=== PATIENT | male | born 1960 | race Caucasian/White ===

== ENCOUNTER 2019-12-18 06:29 | Outpatient (CLI) | payer OTHER, SELFPAY ==
--- NOTE | ~2019-12-18 | XR_ITS ---
EXAMINATION: XR shoulder RT min 2V DATE: 12/18/2019 06:54 INDICATION: Right shoulder pain. TECHNIQUE: 4 views of right shoulder were obtained. COMPARISON: None. FINDINGS: Bone alignment is normal. No fracture. There is mild osteoarthritis of glenohumeral joint a nd moderate osteoarthritis of acromioclavicular joint. There are old healed right rib fractures. A ca lcified right lung nodule is consistent with old granulomatous disease. IMPRESSION: 1. Polyarticular osteoarthritis. Reviewed, dictated and finalized at location A. FOLIO DIRECTOR
== END 2019-12-18 06:30 | disposition home or self-care (01) ==
PROVIDERS: PCP Family Medicine; Visit Provider Orthopaedic Surgery
DX: M19.011 Primary osteoarthritis, right shoulder (principal)
CPT/HCPCS: 73030

== ENCOUNTER 2020-01-12 13:39 | Outpatient (RCR) | payer OTHER, SELFPAY ==
--- NOTE | 2020-01-12 15:10 | PTOPEVAL ---
PHYSICAL THERAPY EVALUATION AND PLAN OF CARE Thank you for referring this patient to [facility] [place]. Tre was provided with HEP to address strength and ROM deficits as noted below. He will follow-up in 3 weeks to review HEP and update exercises as needed. Please review, sign, date and return this plan of care ANUPAMA. I agree with and certify that the following plan of care is medically necessary. 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 Staying the same for the most part, but aggravating enough to pursue treatment. Will sometimes take over the counter medication. Self Report Pain Assessment Right Shoulder(s) Reported Pain Level 0 Pain Description Aching Current Pain Intensity 0 Lowest Pain Intensity 0 Greatest Pain Intensity 3 Upper Extremity Range of Motion Scapular/ Shoulder Range of Motion Right Shoulder Medial Rotation - Active lateral to L1 with elbow Query Text:Reach Behind the Back pointing posteriorly Scapular/Shoulder Strength Left Shoulder Flexion Strength 5 Normal Shoulder Abduction Strength 5 Normal Shoulder Medial Rotation Strength 5 Normal Shoulder Lateral Rotation Strength 5 Normal Right Shoulder Elevation - Upper Trapezius 5 Normal Scapular Retraction - Rhomboid 4 Good Scapular Retraction - Middle Trapezius 4 Good Scapular Retraction - Lower Trapezius 4 Good Scapular Protraction - Serratus 4- Good - Shoulder Flexion Strength 5 Normal Shoulder Abduction Strength 4 Good Shoulder Medial Rotation Strength 5 Normal Shoulder Lateral Rotation Strength 4 Good Shoulder Strength Comments describes pain in biceps with MMT; mild scapular tipping during scapular retraction Muscle Length Testing Levaetor Scapulae Muscle Length (R) Mild Tightness Shoulder External Rotators Muscle Length (R) Moderate Tightness Pectoralis Major Muscle Length (R) Moderate Tightness Pectoralis Minor Muscle Length (R) Moderate Tightness Posture Sitting Position Shoulder Posture (R) Forward Scapula Posture (R) Protracted Shoulder Special Tests Empty Can (supraspinatus) Test Negative Right Painful Arc Negative Right Drop Arm Test Negative Right Yergason's Test Negative Right Speed's Test Negative Right H
--- NOTE | 2020-02-02 14:17 | PCPTNOTE ---
Patient called and cancelled his appointment today. He had to go to work. Will call to follow-up with patient regarding future visits or needs.
--- NOTE | 2020-02-15 13:31 | PCPTNOTE ---
PHYSICAL THERAPY DISCHARGE NOTIFICATION Attending Provider: Ori Eduardo MD Patient:Tre Fox Date of :1960 Patient has not returned for any further treatments since 01/12/2020, therefore he will be discharged at this time. Patient?s initial visit was on 01/12/2020. He cancelled his follow-up appointment due to work. He did not reschedule the appointment. The goals have not been assessed. Thank you for referring this patient to [facility]. Please review, sign, date and return this discharge summary ANUPAMA. I have been updated about the patient's current status and I agree with discharge from the above service at this time. Referring Physician Date
== END 2020-02-16 08:34 | disposition home or self-care (01) ==
LOC: ANHPT 13:39
PROVIDERS: PCP Family Medicine; Visit Provider Orthopaedic Surgery
DX: M19.011 Primary osteoarthritis, right shoulder (principal)
CPT/HCPCS: 97110; 97161

== ENCOUNTER 2020-11-01 06:32 | Outpatient (CLI) | payer OTHER, SELFPAY ==
[2020-11-01 07:39] LABS: Basophils Absolute Auto 0.1 K/mm3 (0.0-0.1); Eosinophils Absolute Auto 0.2 K/mm3 (0-0.3); Eosinophils Percent Auto 3.8 % (0-4.4); Hematocrit 42.2 % (42.0-52.0); Hemoglobin 14.1 g/dL (14.0-18.0); Immature Granulocyte Absolute 0.02 K/mm3 (0.00-0.031); Immature Granulocyte Percent A 0.3 % (0-0.5); Lymphocytes Absolute Auto 1.46 K/mm3 (0.9-3.2); Lymphocytes Percent Auto 23.1 % (18.3-44.2); Mean Corpuscular HGB Conc 33.4 g/dl (32-36); Mean Corpuscular Hemoglobin 29.7 pg (26-34); Mean Corpuscular Volume 88.8 fl (80-100); Monocytes Absolute Auto 0.7 K/mm3 (0.1-0.6); Monocytes Percent Auto 10.3 % (2.6-8.5); Neutrophils Absolute Auto 3.9 K/mm3 (1.3-6.7); Neutrophils Percent Auto 61.5 % (45.5-73.1); Platelet Count Result 320 k/mm3 (150-375); Red Blood Count 4.75 M/mm3 (4.6-6.20); Red Cell Distribution Width 13.4 % (11.5-14.5); White Blood Count 6.3 K/mm3 (4.5-10.0)
[2020-11-01 07:53] LABS: Alanine Aminotransferase 36 U/L (4-50); Alkaline Phosphatase 62 U/L (38-126); Anion Gap 2 mmol/L (8-16); Aspartate Amino Transferase 41 U/L (17-59); Bilirubin,Total 0.6 mg/dL (0.2-1.3); Blood Urea Nitrogen 15 mg/dL (9-20); Calcium 9.2 mg/dL (8.4-10.2); Carbon Dioxide 34 mmol/L (22-30); Chloride 100 mmol/L (98-107); Cholesterol 233 mg/dL (0-200); Estimated Glomerular Filt Rate > 60; Glucose 101 mg/dL (75-110); HDL Direct 81 mg/dL; Potassium 4.5 mmol/L (3.4-5.0); Sodium 136 mmol/L (137-145); Triglycerides 82 mg/dL (<150)
[2020-11-01 08:04] LABS: LDL Cholesterol Direct 132 mg/dL
[2020-11-01 08:22] LABS: Prostate Specific Antigen 0.5 ng/mL (< OR = 4.0)
[2020-11-01 08:53] LABS: Hepatitis C Virus Antibody Negative (Negative)
== END 2020-11-01 06:33 | disposition home or self-care (01) ==
PROVIDERS: PCP Family Medicine; Visit Provider Family Medicine
DX: Z13.220 Encounter for screening for lipoid disorders (principal); Z12.5 Encounter for screening for malignant neoplasm of prostate; Z11.59 Encounter for screening for other viral diseases; Z00.00 Encounter for general adult medical examination without abnormal findings
CPT/HCPCS: 36415; 80053; 80061; 84153; 85025; 86803; G0103

== ENCOUNTER 2020-12-07 17:00 | Outpatient (RCR) | payer OTHER, SELFPAY ==
--- NOTE | 2020-11-08 16:10 | PTOPEVAL ---
PHYSICAL THERAPY EVALUATION AND PLAN OF CARE Thank you for referring Tre Fox to [facility].? The patient is scheduled to be seen for therapy? 1x/week for 2-4 weeks. Please review, sign, date and return this plan of care ANUPAMA. I agree with and certify that the following plan of care is medically necessary. Referring Physician Date Attending Provider: Ori Eduardo MD Evaluation Evaluation Information Problem Diagnosis cervical radiculopathy Onset 08/2020 Subjective Information Tre is here today with c/o Query Text:As Reported By Patient/ right shoulder pain and Family scapular pain that is diagnosed as cervical radiculopathy. He received a steroid pack on 10/17/2020 and reports that most symptoms have subsided. At times feels symptoms in biceps. States that prior to steroid pack he was not able to sleep on his sides, but now is able to sleep in whatever position is comfortable. Reports that overall he is now doing very well. Pain Assessment Timing of Pain Assessment Timing of Pain Assessment Assessment Self Report Self Report Pain Level 0 Pain Score Pain Score 0: Self Report Cervical and Lumbar ROM Cervical ROM Reason Not Measured WNL/Left,WNL/Right Upper Extremity Range of Motion General Upper Extremity Range of Motion Gross Upper Extremity Range of Motion left shoulder AROM: WNL Comments right shoulder AROM: limited in shoulder IR behind the back and reaching horizontal adduction when compared to left Upper Extremity Muscle Strength Testing Scapular/Shoulder Left Shoulder Flexion Strength 5 Normal Shoulder Abduction Strength 5 Normal Shoulder Medial Rotation Strength 5 Normal Shoulder Lateral Rotation Strength 5 Normal Right Shoulder Flexion Strength 5 Normal Shoulder Abduction Strength 4- Good - Shoulder Medial Rotation Strength 5 Normal Shoulder Lateral Rotation Strength 4- Good - Muscle Length Testing Muscle Length Testing Scalenes Anterior Muscle Length (R) Moderate Tightness,(L) Query Text: Moderate Tightness Pectoralis Major Muscle Length (R) Moderate Tightness,(L) Moderate Tightness Pectoralis Minor Muscle Length (L) Moderate Tightness,(R) Severe Tightness Palpation Assessment Palpation Palpation
--- NOTE | 2020-11-24 17:41 | PTOPEVAL ---
PHYSICAL THERAPY PLAN OF CARE UPDATE Thank you for referring Tre Fox to [facility].? The patient is scheduled to be seen for therapy? 1x/week for 3 weeks. Please review, sign, date and return this plan of care ANUPAMA. I agree with and certify that the following plan of care is medically necessary. Referring Physician Date Attending Provider: Ori Eduardo MD Progress Diagnosis cervical radiculopathy Onset 08/2020 Subjective Information Tre is here today reporting Query Text:As Reported By Patient/ that he is sore, but is doing Family very well overall. Symptoms he is experiencing today are not the same as those that brought him to the doctor initially. Prior to today he was feeling very good. He feels like he is benefiting from learning from PT and is gaining a lot of flexibility Pain Score Pain Score 0: Self Report Cervical and Lumbar ROM Cervical ROM Reason Not Measured WNL/Left,WNL/Right Upper Extremity Range of Motion General Upper Extremity Range of Motion Gross Upper Extremity Range of Motion left shoulder AROM: WNL Comments right shoulder AROM: limited in shoulder IR behind the back when compared to left - reports a pulling in the biceps Upper Extremity Muscle Strength Testing Scapular/Shoulder Left Shoulder Flexion Strength 5 Normal Shoulder Abduction Strength 5 Normal Shoulder Medial Rotation Strength 5 Normal Shoulder Lateral Rotation Strength 5 Normal Right Scapular Retraction - Rhomboid 4- Good - Scapular Retraction - Middle Trapezius 3+ Fair + Scapular Retraction - Lower Trapezius 4- Good - Shoulder Flexion Strength 5 Normal Shoulder Abduction Strength 5 Normal Shoulder Medial Rotation Strength 5 Normal Shoulder Lateral Rotation Strength 5 Normal Shoulder Strength Comments some pulling in biceps with IR MMT and abduction Muscle Length Testing Muscle Length Testing Scalenes Anterior Muscle Length (R) Mild Tightness,(L) Mild Query Text: Tightness Pectoralis Major Muscle Length (R) Mild Tightness,(L) Mild Tightness Pectoralis Minor Muscle Length (R) Moderate Tightness,(L) Moderate Tightness Palpation all trigger points improving; thoracic mobility improving PT Clinical Summary Tre is a 60 yo male presenting to outpatient
--- NOTE | 2020-12-12 13:52 | PCPTNOTE ---
Patient called & cancelled scheduled appointment this date. Rescheduled for 12/14.
--- NOTE | 2020-12-14 11:56 | PCPTNOTE ---
Patient called & cancelled scheduled appointment this date due to work.
--- NOTE | 2020-12-28 08:59 | PCPTNOTE ---
Patient called & cancelled scheduled appointment this date due to does not feel he needs additional therapy.
--- NOTE | 2020-12-28 09:27 | PCPTNOTE ---
Admitting Provider: Attending Provider: Ori Eduardo MD Patient:Tre Fox Date of :1960 Discharge Note Patient has not returned for any further treatments since 12/07/2020, therefore he will be discharged at this time. He has attended 5 therapy visits since 11/08/20 with multiple cancelled visits. He has been instructed with a HEP and demonstrates independence with performance. He demonstrates improved strength, pain and arm function. The goals have been partially met at this time. Thank you for referring this patient to [facility]. Please review, sign, date and return this discharge summary ANUPAMA. I have been updated about the patient's current status and I agree with discharge from the above service at this time. Referring Physician Date
== END 2020-12-28 12:40 | disposition home or self-care (01) ==
LOC: ANHPT 17:00
PROVIDERS: PCP Family Medicine; Referring Provider Orthopaedic Surgery; Visit Provider Orthopaedic Surgery
DX: M19.011 Primary osteoarthritis, right shoulder (principal); M54.12 Radiculopathy, cervical region
CPT/HCPCS: 97110; 97140; 97161

== ENCOUNTER 2021-02-23 16:28 | Outpatient (CLI) | payer OTHER, SELFPAY ==
--- NOTE | ~2021-02-23 | MR_ITS ---
EXAMINATION: MR cervical spine wo con DATE: 02/23/2021 17:13 INDICATION: Cervical radiculopathy TECHNIQUE: Magnetic resonance imaging (MRI) of the cervical spine was performed without intravenous c ontrast. Sequences included sagittal T2-weighted FSE, sagittal T2-weighted FS FSE, sagittal T1-weight ed FSE, axial MERGE and axial T2-weighted FSE. COMPARISON: Cervical spine radiographs dated 12/26/2020 FINDINGS: Bone alignment is normal. Vertebral body heights are normal. Bone marrow signal intensity is normal . Mild to moderate disc height loss at C6-C7. Annular fissures with disc extrusions at C3-C4, C5-C6 a nd C6-C7 with be further detailed below. Mild disc height loss at T2-T3 and T3-T4 with mild disc bulg e at the former. Cord signal intensity is normal. Cervical soft tissues are unremarkable. The followi ng disc levels are specifically discussed: C2-C3: The disc does not extend beyond the endplate margin. There is no uncovertebral joint osteoarth ritis. There is mild left and minimal right facet joint osteoarthritis. There is no neural foraminal stenosis. There is no central canal stenosis. C3-C4: Annular fissure with small central disc extrusion with disc material extending up to 3 mm ceph alad to the level of the inferior endplate of C3 and a couple millimeter caudal to the level of the s uperior endplate of C4. There is mild right uncovertebral joint osteoarthritis. There is mild right a nd mild to moderate left facet joint osteoarthritis. There is mild right neural foraminal stenosis. T here is minimal central canal stenosis. C4-C5: The disc does not extend beyond the endplate margin. There is minimal right uncovertebral join t osteoarthritis. There is mild bilateral facet joint osteoarthritis. There is mild bilateral neural foraminal stenosis. There is no central canal stenosis. C5-C6: Disc is bulging with superimposed annular fissure and left paracentral disc extrusion with dis c material extending a few millimeters cephalad and caudal to the level of the endplates. There is mi ld bilateral uncovertebral joint osteoarthritis. There is minimal bilateral facet joint osteoarthriti s. There is mild right and minimal left neural foraminal stenosis. There is mild central canal stenos is at the left paracentral disc extrusion indenting the left ventral surface of the cord and also agueda rowing the left lateral recess. C6-C7: Disc is bulging with superimposed annular fissure and right foraminal zone disc extrusion with disc material extending couple millimeter cephalad and caudal to the level of the endplates. There i s mild left and moderate right uncovertebral joint osteoarthritis. There is mild bilateral facet join t osteoarthritis. There is mild left and moderate right neural foraminal stenosis. There is mild cent ral canal stenosis with the right foraminal zone disc extrusion mildly indenting the right ventral leo rface of the cord and narrowing the right lateral recess. C7-T1: Disc is minimally bulging. There is minimal bilateral uncovertebral joint osteoarthritis. Ther e is mild right and minimal left facet joint osteoarthritis. There is no neural foraminal stenosis. T here is no central canal stenosis. IMPRESSION: 1. Mild to moderate cervical spondylosis most notable for disc extrusions indenting the ventral surfa ce of the cord at C5-C6 and C6-C7 and to lesser degree at C3-C4. Reviewed, dictated and finalized at location A. IMPRESSION: 1. Mild to moderate cervical spondylosis most notable for disc extrusions inden ting the ventral surface of the cord at C5-C6 and C6-C7 and to lesser degree at C3-C4.
== END 2021-02-23 16:29 | disposition home or self-care (01) ==
PROVIDERS: PCP Family Medicine; Visit Provider Orthopaedic Surgery
DX: M47.22 Other spondylosis with radiculopathy, cervical region (principal); M50.223 Other cervical disc displacement at C6-C7 level; M50.222 Other cervical disc displacement at C5-C6 level; M50.221 Other cervical disc displacement at C4-C5 level
CPT/HCPCS: 72141

== ENCOUNTER 2021-04-25 15:30 | Outpatient (RCR) | payer OTHER, SELFPAY ==
--- NOTE | 2021-03-27 16:44 | PTOPEVAL ---
PHYSICAL THERAPY EVALUATION AND PLAN OF CARE Thank you for referring Tre Fox to [facility].? The patient is scheduled to be seen for therapy? 1x/week for 4-6 weeks. Please review, sign, date and return this plan of care ANUPAMA. I agree with and certify that the following plan of care is medically necessary. Referring Physician Date Attending Provider: Ori Eduardo MD Evaluation Diagnosis cervical pain with right radiculopathy Onset 6months Subjective Information Tre is here today with c/o Query Text:As Reported By Patient/ severe cervical pain with Family right shoulder radiculopathy that was particularly limiting sleep. he noticed that since he stopped doing push ups, he is able sleep musch more comfortably. He puts a neck support around his neck at night and he finds this gives him good sleep. Also notes that arms overhead gives him relief of the pain. Self Report Pain Assessment Right Spine, Cervical Reported Pain Level 1 Pain Description Radiating Interventions Used Interventions Used By Clinicians Exercise Cervical and Lumbar ROM Cervical ROM Cervical Flexion (0-60) 45 Query Text:Active in Degrees Cervical Extension (0-70) 45 Query Text:Active in Degrees Cervical Rotation Right (0-90) 75 Query Text:Active in Degrees Cervical Rotation Left (0-90) 75 Query Text:Active in Degrees Upper Extremity Range of Motion General Upper Extremity Range of Motion Reason Not Measured WFL/Left,WFL/Right Gross Upper Extremity Range of Motion left shoulder mildly stiff to Comments elevation; right shoulder IR behind back very limited reaching only to right hip; left shoulder IR behind back: L3 Upper Extremity Muscle Strength Testing Scapular/Shoulder Bilateral Scapular Retraction - Middle Trapezius 3+ Fair + Scapular Retraction - Lower Trapezius 3 Fair Scapular Protraction - Serratus 3+ Fair + Shoulder Flexion Strength 5 Normal Shoulder Extension Strength 5 Normal Shoulder Medial Rotation Strength 5 Normal Shoulder Lateral Rotation Strength 5 Normal Muscle Length Testing Muscle Length Testing Latissmus Dorsi Muscle Length (L) Moderate Tightness,(R) Severe Tightness Shoulder External Rotators Muscle Length (L) Moderate Tightness,(R) Severe Tightness Pectoralis Major Muscle Length
--- NOTE | 2021-04-18 10:10 | PCPTNOTE ---
Patient called & cancelled scheduled appointment this date due to having to work.
--- NOTE | 2021-04-25 16:01 | PTOPEVAL ---
PHYSICAL THERAPY DISCHARGE NOTE Thank you for referring Tre Fox to [facility].? Please review, sign, date and return this plan of care ANUPAMA. I agree with and certify that the following plan of care is medically necessary. Referring Physician Date Attending Provider: Ori Eduardo MD Discharge Diagnosis cervical pain with right radiculopathy Onset 6months Subjective Information States that he is feeling Query Text:As Reported By Patient/ really good. Really likes Family doing the nerve glides. He states that he is using his exercises and stretches to help him feel better. Self Report Pain Assessment Right Spine, Cervical Reported Pain Level 0 Pain Description Radiating Pain Score Pain Score 0: Self Report Interventions Used Interventions Used By Clinicians Exercise Cervical and Lumbar ROM Cervical ROM Cervical Flexion (0-60) 55 Query Text:Active in Degrees Cervical Extension (0-70) 60 Query Text:Active in Degrees Cervical Rotation Right (0-90) 75 Query Text:Active in Degrees Cervical Rotation Left (0-90) 75 Query Text:Active in Degrees Upper Extremity Range of Motion General Upper Extremity Range of Motion Reason Not Measured WFL/Left,WFL/Right Gross Upper Extremity Range of Motion left shoulder mildly stiff to Comments elevation; right shoulder IR behind back very limited reaching L5; left shoulder IR behind back: T12 Upper Extremity Muscle Strength Testing Scapular/Shoulder Bilateral Scapular Retraction - Middle Trapezius 4 Good Scapular Retraction - Lower Trapezius 4- Good - Scapular Protraction - Serratus 4- Good - Shoulder Flexion Strength 5 Normal Shoulder Extension Strength 5 Normal Shoulder Medial Rotation Strength 5 Normal Shoulder Lateral Rotation Strength 5 Normal Muscle Length Testing Muscle Length Testing Latissmus Dorsi Muscle Length (R) Moderate Tightness,(L) Moderate Tightness Shoulder External Rotators Muscle Length (R) Moderate Tightness,(L) Moderate Tightness Pectoralis Major Muscle Length (R) Mild Tightness,(L) Mild Tightness Posture Posture Standing Position Posture Evaluation View Lateral Head/C-Spine Posture Flexed,Forward Head Thoracic Spine Posture Increased Kyphosis Shoulder Posture (L) Rounded,(R) Rounded,(L) Forward,(R) Forward Scapula Posture (R) Protracted Palpation Assessment Palpation Palpation
== END 2021-04-26 11:13 | disposition home or self-care (01) ==
LOC: ANHPT 15:30
PROVIDERS: PCP Family Medicine; Visit Provider Orthopaedic Surgery
DX: M54.12 Radiculopathy, cervical region (principal); M19.011 Primary osteoarthritis, right shoulder
CPT/HCPCS: 97110; 97140; 97161

== ENCOUNTER 2021-09-30 06:56 | Outpatient (CLI) | payer OTHER, SELFPAY ==
[2021-09-30 07:49] LABS: Alanine Aminotransferase 22 U/L (4-50); Albumin Level 4.5 g/dL (3.5-5.1); Alkaline Phosphatase 65 U/L (38-126); Anion Gap 4 mmol/L (8-16); Aspartate Amino Transferase 30 U/L (17-59); Bilirubin,Total 0.5 mg/dL (0.2-1.3); Blood Urea Nitrogen 12 mg/dL (9-20); Calcium 9.4 mg/dL (8.4-10.2); Carbon Dioxide 31 mmol/L (22-30); Chloride 99 mmol/L (98-107); Cholesterol 218 mg/dL (0-200); Estimated Glomerular Filt Rate > 60; Glucose 104 mg/dL (65-110); HDL Direct 77 mg/dL; Potassium 4.4 mmol/L (3.4-5.0); Sodium 134 mmol/L (137-145); Triglycerides 72 mg/dL (<150)
[2021-09-30 08:00] LABS: LDL Cholesterol Direct 108 mg/dL
[2021-09-30 08:03] LABS: Basophils Absolute Auto 0.1 K/mm3 (0.0-0.1); Basophils Percent Auto 1.4 % (0.2-1.2); Eosinophils Absolute Auto 0.2 K/mm3 (0-0.3); Eosinophils Percent Auto 3.6 % (0-4.4); Hematocrit 43.1 % (42.0-52.0); Hemoglobin 14.5 g/dL (14.0-18.0); Immature Granulocyte Absolute 0.01 K/mm3 (0.00-0.031); Immature Granulocyte Percent A 0.2 % (0-0.5); Lymphocytes Absolute Auto 1.57 K/mm3 (0.9-3.2); Lymphocytes Percent Auto 31.7 % (18.3-44.2); Mean Corpuscular HGB Conc 33.6 g/dl (32-36); Mean Corpuscular Hemoglobin 29.3 pg (26-34); Mean Corpuscular Volume 87.1 fl (80-100); Mean Platelet Volume 10.1 fl (7.4-10.4); Monocytes Absolute Auto 0.5 K/mm3 (0.1-0.6); Monocytes Percent Auto 9.3 % (2.6-8.5); Neutrophils Absolute Auto 2.7 K/mm3 (1.3-6.7); Neutrophils Percent Auto 53.8 % (45.5-73.1); Platelet Count Result 349 k/mm3 (150-375); Red Blood Count 4.95 M/mm3 (4.6-6.20); Red Cell Distribution Width 13.1 % (11.5-14.5)
[2021-09-30 08:19] LABS: Prostate Specific Antigen 0.6 ng/mL (< OR = 4.0)
[2021-09-30 09:11] LABS: Hepatitis C Virus Antibody Negative (Negative)
== END 2021-09-30 06:57 | disposition home or self-care (01) ==
LOC: ANHLAB 06:59
PROVIDERS: PCP Family Medicine; Visit Provider Family Medicine
DX: Z13.220 Encounter for screening for lipoid disorders (principal); Z12.5 Encounter for screening for malignant neoplasm of prostate; Z11.59 Encounter for screening for other viral diseases; Z00.00 Encounter for general adult medical examination without abnormal findings
CPT/HCPCS: 36415; 80053; 80061; 84153; 85025; 86803; G0103

== ENCOUNTER 2022-10-11 04:24 | Emergency (ER) | payer OTHER, SELFPAY ==
[2022-10-11 04:30] VITALS: BP 146/78; PULSE 63; RESP 18; TEMP 36.6; O2SAT 100
[2022-10-11 04:39] VITALS: BP 143/87; PULSE 52; RESP 14; O2SAT 98
[2022-10-11 04:40] VITALS: RESP 18; O2SAT 100
--- NOTE | 2022-10-11 05:12 | ED.GENADULT ---
HPI - General Adult General Chief complaint: Unspecified Stated complaint: FLU SYMPTOMS Time Seen by Provider: 10/11/22 04:55 History of Present Illness HPI narrative: this is a 62-year-old male presenting ED with chief complaint of flu-like symptoms. Patient says that his symptoms started on Saturday. He describes body aches, fever, chills, fatigue decreased oral intake. He denies chest pain, shortness of breath, nausea/vomiting / diarrhea. Patient has been improving since then. Yesterday he was able to go about his job without difficulty and has a normal appetite. However tonight when he went to sleep the patient was having feelings of feet severe anxiety when he went to bed. It is not associated with any physical symptoms. He has never experienced anxiety before. Related Data Allergies Allergy/AdvReac Type Severity Reaction Status Date / Time No Known Allergies Allergy Unverified 12/17/18 05:51 Review of Systems Review of Systems: CONSTITUTIONAL: Denies night sweats. EYES: No eye pain ENT: Denies rhinorrhea CARDIOVASCULAR: Denies palpitations RESPIRATORY: Denies hemoptysis GASTROINTESTINAL: Denies hematemesis GENITOURINARY: Denies hematuria. SKIN: Denies rash MUSCULOSKELETAL: Denies myalgia. NEUROLOGIC: Denies weakness. PSYCHIATRIC: Denies delusions PMFSH Past Medical History Medical History Osteoarthritis of right shoulder Surgical History Surgical History History of appendectomy History of arthroscopy of both knees History of left inguinal hernia repair Family History Family History Father Malignant neoplasm of prostate Other Cerebrovascular accident Family history of allergic disorder Family history of malignant neoplasm Hypertension Social History Social History Smoking status: Former smoker Smoking end date: 11/04/92 Alcohol intake: never Exam Narrative: APPEARANCE: No apparent distress. Patient is polite and pleasant during the interview and is accompanied by his . Head: atraumatic. EYES: EOMI, NOSE: Atraumatic NECK: Trachea midline RESPIRATORY: No increased rate of breathing , clear to auscultation bilaterally CARDIOVASCULAR: bradycardic and regular, no peripheral edema ABDOMINAL: Non-distended, nontender no guarding or rebound MUSCULOSKELETAl: No obvious deformities NEURO: Alert. Moving 4/4 extremities SKIN:: Warm, dry. Normal color PSYCHIATRIC: Normal affect Course Vital Signs Vital signs: Vital Signs Temperature 97.9 F 10/11/22 04:30 Pulse Rate 63 10/11/22 04:30 Respiratory Rate 18 10/11/22 04:30 Blood Pressure 146/78 H 10/11/22 04:30 Pulse Oximetry 100 10/11/22 04:30 Oxygen Delivery Room Air 10/11/22 04:30 Temperature 97.9 F 10/11/22 04:30 Pulse Rate 52 L 10/11/22 04:39 Respiratory Rate 18 10/11/22 04:40 Blood Pressure 143/87 H 10/11/22 04:39 Pulse Oximetry 100 10/11/22 04:40 Oxygen Delivery Room Air 10/11/22 04:30 Medical Decision Making MDM Narrative Medical decision making narrative: this is a 62-year-old male presenting with flu-like symptoms. His symptoms appear to be on the upswing and he is doing much better. Viral swabs have been ordered use positive for COVID. EKG was obtained. Patient was given 1 mg of p.o. Ativan. EKG interpretation: Rhythm [sinus], Rate 47, [place] -[normal], [place] -[normal], QRS [narrow], QTC [normal], T waves -[negative for concerning inversions], ST Segments - [Negative for concerning elevations] Final interpretations: Sinus bradycardia Patient has asymptomatic bradycardia. this time patient has a normal exam has stable vital signs and is well appearing overall. He will be discharged home. He has been instructed to follow up his primary care physic
[2022-10-11 06:07] LABS: Influenza A QL RT-PCR Negative (Negative); Influenza B QL RT-PCR Negative (Negative); SARS-CoV-2 RNA PCR Positive
--- NOTE | 2022-10-11 06:23 | ECG_ITS ---
Measurements Intervals [place] Rate: 47 P: 65 MO: 160 QRS: 4 QRSD: 102 T: 49 QT: 466 QTc: 415 Interpretive Statements SINUS BRADYCARDIA OTHERWISE NORMAL ECG NO PREVIOUS ECG AVAILABLE FOR COMPARISON Electronically Signed On 10-12-2022 7:22:41 COMMUNITY MUSIC THERAPIST by Jose De Jesus Shirley M.D.
[2022-10-11] MEDS: LORazepam (*CRX) 1 MG TABLET PO (06:32)
[2022-10-11 06:56] VITALS: BP 115/69; PULSE 47; RESP 16; O2SAT 99
== END 2022-10-11 06:57 | disposition home or self-care (01) ==
PROVIDERS: Emergency Provider Emergency Medicine; PCP Family Medicine
DX: U07.1 COVID-19 (principal); F41.9 Anxiety disorder, unspecified; M19.011 Primary osteoarthritis, right shoulder; Z87.891 Personal history of nicotine dependence
CPT/HCPCS: 87636; 93005; 99283; A9270

== ENCOUNTER 2022-10-31 06:54 | Outpatient (CLI) | payer OTHER, SELFPAY ==
[2022-10-31 07:32] LABS: Basophils Percent Auto 0.7 % (0.2-1.2); Eosinophils Absolute Auto 0.1 K/mm3 (0-0.3); Eosinophils Percent Auto 1.4 % (0-4.4); Hematocrit 42.8 % (42.0-52.0); Hemoglobin 14.1 g/dL (14.0-18.0); Immature Granulocyte Absolute 0.01 K/mm3 (0.00-0.031); Immature Granulocyte Percent A 0.2 % (0-0.5); Lymphocytes Absolute Auto 1.44 K/mm3 (0.9-3.2); Lymphocytes Percent Auto 25.3 % (18.3-44.2); Mean Corpuscular HGB Conc 32.9 g/dl (32-36); Mean Corpuscular Hemoglobin 28.5 pg (26-34); Mean Corpuscular Volume 86.5 fl (80-100); Mean Platelet Volume 10.2 fl (7.4-10.4); Monocytes Absolute Auto 0.6 K/mm3 (0.1-0.6); Neutrophils Absolute Auto 3.6 K/mm3 (1.3-6.7); Neutrophils Percent Auto 62.4 % (45.5-73.1); Platelet Count Result 328 k/mm3 (150-375); Red Blood Count 4.95 M/mm3 (4.6-6.20); Red Cell Distribution Width 13.6 % (11.5-14.5); White Blood Count 5.7 K/mm3 (4.5-10.0)
[2022-10-31 07:33] LABS: Alanine Aminotransferase 35 U/L (6-50); Albumin Level 4.4 g/dL (3.5-5.1); Alkaline Phosphatase 80 U/L (38-126); Anion Gap 5 mmol/L (8-16); Aspartate Amino Transferase 32 U/L (17-59); Bilirubin,Total 0.7 mg/dL (0.2-1.3); Blood Urea Nitrogen 11 mg/dL (9-20); Calcium 8.9 mg/dL (8.4-10.2); Carbon Dioxide 29 mmol/L (22-30); Chloride 105 mmol/L (98-107); Cholesterol 265 mg/dL (0-200); Estimated Glomerular Filt Rate > 60; Glucose 107 mg/dL (65-110); HDL Direct 70 mg/dL; Potassium 4.5 mmol/L (3.4-5.0); Sodium 139 mmol/L (137-145); Triglycerides 108 mg/dL (<150)
[2022-10-31 07:44] LABS: LDL Cholesterol Direct 119 mg/dL
[2022-10-31 08:02] LABS: Prostate Specific Antigen 0.5 ng/mL (< OR = 4.0)
== END 2022-10-31 06:55 | disposition home or self-care (01) ==
LOC: ANHLAB 06:56
PROVIDERS: PCP Family Medicine; Visit Provider Family Medicine
DX: Z00.00 Encounter for general adult medical examination without abnormal findings (principal); E78.00 Pure hypercholesterolemia, unspecified; Z12.5 Encounter for screening for malignant neoplasm of prostate
CPT/HCPCS: 36415; 80053; 80061; 84153; 85025; G0103

== ENCOUNTER 2023-08-27 06:32 | Outpatient (CLI) | payer OTHER, SELFPAY ==
[2023-08-27 07:45] LABS: Basophils Absolute Auto 0.1 K/mm3 (0.0-0.1); Basophils Percent Auto 1.1 % (0.2-1.2); Eosinophils Absolute Auto 0.1 K/mm3 (0-0.3); Eosinophils Percent Auto 2.8 % (0-4.4); Hematocrit 44.2 % (42.0-52.0); Hemoglobin 14.3 g/dL (14.0-18.0); Lymphocytes Absolute Auto 1.48 K/mm3 (0.9-3.2); Mean Corpuscular HGB Conc 32.4 g/dl (32-36); Mean Corpuscular Hemoglobin 29.1 pg (26-34); Mean Corpuscular Volume 89.8 fl (80-100); Mean Platelet Volume 10.5 fl (7.4-10.4); Monocytes Absolute Auto 0.5 K/mm3 (0.1-0.6); Monocytes Percent Auto 9.9 % (2.6-8.5); Neutrophils Absolute Auto 2.5 K/mm3 (1.3-6.7); Neutrophils Percent Auto 54.2 % (45.5-73.1); Platelet Count Result 322 k/mm3 (150-375); Red Blood Count 4.92 M/mm3 (4.6-6.20); Red Cell Distribution Width 13.1 % (11.5-14.5); White Blood Count 4.6 K/mm3 (4.5-10.0)
[2023-08-27 08:14] LABS: Alanine Aminotransferase 23 U/L (6-50); Albumin Level 4.4 g/dL (3.5-5.1); Alkaline Phosphatase 68 U/L (38-126); Anion Gap 4 mmol/L (8-16); Aspartate Amino Transferase 31 U/L (17-59); Bilirubin,Total 0.8 mg/dL (0.2-1.3); Blood Urea Nitrogen 14 mg/dL (9-20); Calcium 9.4 mg/dL (8.4-10.2); Carbon Dioxide 30 mmol/L (22-30); Chloride 102 mmol/L (98-107); Cholesterol 231 mg/dL (0-200); Estimated Glomerular Filt Rate > 60; Glucose 104 mg/dL (65-110); HDL Direct 71 mg/dL; Potassium 4.4 mmol/L (3.4-5.0); Sodium 136 mmol/L (137-145); Triglycerides 77 mg/dL (<150)
[2023-08-27 08:39] LABS: Prostate Specific Antigen 0.6 ng/mL (< OR = 4.0)
[2023-08-27 09:14] LABS: LDL Cholesterol Direct 126 mg/dL
== END 2023-08-27 06:33 | disposition home or self-care (01) ==
LOC: ANHLAB 06:35
PROVIDERS: PCP Family Medicine; Visit Provider Family Medicine
DX: E78.00 Pure hypercholesterolemia, unspecified (principal); Z00.00 Encounter for general adult medical examination without abnormal findings; Z12.5 Encounter for screening for malignant neoplasm of prostate
CPT/HCPCS: 36415; 80053; 80061; 84153; 85025; G0103

== ENCOUNTER 2025-03-18 02:36 | Day surgery (SDC) | payer OTHER, SELFPAY ==
[2025-03-05 15:46] VITALS: BMI 24.1
--- NOTE | 2025-03-05 15:59 | PC.NURSE ---
Report to the Outpatient Waiting Room, entrance under the green pavilion located off [facility], at time _0830am on date __03/18/25 . Planned Procedure Time: __1030am . Time changes happen often and if your time is changed the preop area will call you the afternoon before. - You and your visitor will be asked to self-screen and do not enter if you have any COVID symptoms. Please call surgeon if you need to reschedule. - A mask is optional within the hospital at this time. Patients may have clear liquids (water, carbonated beverages, clear teas, apple juice) until 3 hours prior to surgery with a maximum of 20 ounces. - No food from midnight until time of surgery and no smoking, or chewing tobacco (or any form of nicotine). No chewing gum, candy or mints.(0730am) Take only the following medications with a SIP of water on the morning of surgery: Tylenol if needed DO NOT STOP ANY OF YOUR OTHER PRESCRIPTION MEDICATIONS PRIOR TO SURGERY EXCEPT THE FOLLOWING Hold all vitamins and supplements for 3 days per anesthesiologist. Date of last dose is 03/14/25 Medications to discontinue per physician __NSAIDS/Aleve or any Aspirin containing products for [address] Eduardo Date to take last dose____03/09/25 Please no make-up, nail lithuanian, hairspray, perfume, deodorant, or body powder the day of surgery. No jewelry (including any body piercings) or valuables the day of surgery, leave them at home. Please take a shower or bath the night before, or the morning of, surgery with an antibacterial soap. Wear comfortable, loose fitting clothing. - Jewelry must be removed prior to entering the operating room. Rings and piercings that are not removed may be cut off. - The hospital will not accept responsibility for valuables. - Please leave all valuables, including medications, at home the day of surgery. If you are going home after surgery, a licensed form setter/driver must drive you home. - NO public transportation without another adult if you receive anesthesia. - We recommend that an adult stay with you for 24 hours following discharge. - We also recommend that you do not drive, make important decision, drink alcoholic beverages, or take any drugs that were not prescribed by your health care provider for at least 24 hours after your discharge time. Follow any additional instructions given to you from your surgeon. Telephone instructions given to _Patient and asked if any additional questions and then verbalized understanding. Patient advised to call surgeon office or pre surgery nurse liaison [phone] if any additional questions.
[2025-03-18] VITALS (8 sets, daily range): BP systolic 129–143; BP diastolic 70–81; PULSE 48–57; RESP 10–21; TEMP 36.3–36.6; O2SAT 98–100
--- OUTSIDE RECORDS SUMMARY | 2025-03-18 02:39 | XMS_ITS | Encounter Summary ---
Author Organization [facility] Healthcare Address [address] [place] [id number] Care Team Providers Care Certified Welder Name Role Phone Rashaad Quinn MD Primary Care Provider [phone] Ori Eduardo MD Unavailable [phone] Encounter Details Date Type Department Care Team (Late st Contact Info) Description 02/15/2025 Results Follow-Up [facility] Medical Group Primary Care at [address] [address] Rashaad Quinn MD [address] [place] [address] [address] [place] [address] Social History Tobacco Use Types Packs/Day Years Used Date Smoking Tobacco: Former Cigarettes 0.5 17 1 982 - 1998 Alcohol Use Standard Drinks/Week Comments No 0 (1 standard drink = 0.6 oz pur e alcohol) Humiliation, Afraid, Rape, and Kick questionnair e Answer Date Recorded Within the last year, have y ou been afraid of your partner or ex-partner? No 08/16/2021 Within the last year, have y ou been humiliated or emotionally abused in other ways by your partner or ex-partner? No Within the last year, have y ou been kicked, hit, slapped, or otherwise physically hurt by your partner or ex-partner? No 08/16/2021 Within the last year, have y ou been raped or forced to have any kind of sexual activity by your partner or ex-partner? No 08/16/2021 Social Connection and Isolation Panel [NHANES] A nswer Date Recorded In a typical week, how many times do you talk on the phone with family, friends, or neighbors? Once a week 08/16/2021 How often do you get together with friends or re latives? Once a week 08/16/2021 How often do you attend faith or hoahaoism serv ices? Never 08/16/2021 Do you belong to any clubs o r organizations such as faith groups, unions, fraternal or athletic groups, or school groups? No 08/16/2021 How often do you attend meet ings of the clubs or organizations you belong to? Never 08/16/2021 Are you , , di vorced, , never , or living with a partner? 08/16/2021 AUDIT-C Answer Date Recorded Q1: How often do you have a drink containing alcohol? Never 11/21/2023 Q2: How many drinks containi ng alcohol do you have on a typical day when you are drinking? Patient does not drink Q3: How often do you have si x or more drinks on one occasion? Never 11/21/2023 Overall Financial Resource Strain (CARDIA) Answe r Date Recorded How hard is it for you to pa y for the very basics like food, housing, medical care, and heating? Not hard at all 08/16/2021 PHQ-2 Answer Date Recorded PHQ-2 Total Score (If total score is 3 or more points, staff should administer the PHQ-9) 0 02/17/2025 [facility] Answer Date Recorded Do you feel stress - tense, restless, nervous, or anxious, or unable to sleep at night because your mind is troubled all the time - these days? Not at all 08/16/2021 Exercise Vital Sign Answer Date Recorde d On average, how many days pe r week do you engage in moderate to strenuous exercise (like a brisk walk)? 4 days 08/16/2021 On average, how many minutes do you engage in exercise at this level? 30 min 08/16/2021 Hunger Vital Sign Answer Date Recorded Within the past 12 months, y ou worried that your food would run out before you got the money to buy more. Never true 08/16/20 21 Within the past 12 months, t he food you bought just didn't last and you didn't have money to get more. Never true 08/16/2021 PRAPARE - Transportation Answer Date Re corded In the past 12 months, has l ack of transportation kept you from medical appointments or from getting medications? No 05/2020 In the past 12 months, has l ack of transportation kept you from meetings, work, or from getting things needed for daily living? No 08/10/2020 Housing Stability Vital Sign Answer Darvin e Recorded In the last 12 months, was t here a time when you were not able to pay the mortgage or rent on time? No 08/16/2021 Number of Places Lived in the Last Year Not on f ile 08/16/2021 In the last 12 months, was t here a time when you did not have a steady place to sleep or slept in a usp (including now)? No 08/16/2021 Education Answer Date Recorded What is the highest level of school you have completed or the highest degree you have received? Associate degree: occupational, technical, or vocational program 08/10/2020 Sex and Gender Information Value Date Recorded Sex Assigned at Not on file Legal Sex Male 10:[address] [employer] Gender Identity Not on file Sexual Orientation Not on file Occupation Industry Job Start Date Job End Date Not on file Not on file Not on file Not on file Not on file Not on file Not on file Not on file documented as of this encounter Plan of Treatment Not on file documented as of this encounter Visit Diagnoses Not on filedocumented in this encounter Care Teams Certified Welder Relationship Specialty Start Date End Date Rashaad Quinn MD PCP - General 02/19/11 Ori Eduardo MD [address] [facility] [address] [place] [address] Consulting Physician Orthopedic Surgery 08/16/21 documented as of this encounter
--- OUTSIDE RECORDS SUMMARY | 2025-03-18 02:39 | XMS_ITS | Referral Summary ---
Author Organization [facility] Medical Office Building B Address [address] [place] [address] Care Team Providers Care Medical Information Officer Name Role Phone Rashaad Quinn MD Primary Care Provider [phone] Ori Eduardo MD Unavailable [phone] Encounters Date Type Department Care Team Description 03/12/2025 8:45 AM CDT Office Visit [facility] at [address] [phone] Osiris Shelley NP Bradycardia (Primary Dx); Hypercholesterolemia 02/17/2025 8:30 AM CDT Office Visit [facility] Primary Care at [address] [phone] Rashaad Quinn MD Hypercholesterolemia (Primary Dx); Benign prostatic hyperplasia with nocturia; Rotator cuff tear arthropathy of left shoulder 02/15/2025 Results Follow-Up [facility] Primary Care at [address] [phone] Rashaad Quinn MD 02/13/2025 7:15 AM CDT Lab [address] [phone] Need for hepatitis B screening test; Benign prostatic hyperplasia with nocturia; Hypercholesterolemia 02/05/2025 Results Follow-Up [facility] Primary Care at [address] [phone] Asia Mcghee NP Tear of left supraspinatus tendon (Primary Dx) 02/03/2025 3:14 PM CDT - 02/03/2025 11:59 PM CDT Hospital Encounter [facility] [address] [place] [address] Acute pain of left shoulder due to trauma; Bony sclerosis Discharge Disposition: Discharge to home or self care 01/26/2025 Orders Only [facility] Primary Care at [address] [phone] Asia Mcghee NP Acute pain of left shoulder due to trauma (Primary Dx); Bony sclerosis 01/26/2025 Results Follow-Up [facility] Primary Care at [address] [phone] Asia Mcghee NP 01/26/2025 9:05 AM CDT Ancillary Procedure [facility] at [address] [phone] Acute pain of left shoulder 01/20/2025 2:30 PM CDT Office Visit [facility] Primary Care at [address] [phone] Asia Mcghee, LOREE Acute pain of left shoulder (Primary Dx) from Last 3 Months Allergies No known active allergies Medications flaxseed oil oil Active cholecalciferol , vitamin D3, (VITAMIN D3 ORAL) Take by mouth Active calcium carbonate (CALCIUM 600 ORAL) Take by mouth Active naproxen (NAPROSYN) 500 mg tabletIndicatio ns:Right ear pain Take 1 tablet (500 mg total) by mouth 2 (two) times a day as needed for pain (pain) 30 tablet 4 02/18/20 25 Discontinued Active Problems Problem Noted Date Diagnosed Date Rotator cuff tear arthropathy of left shoulder 0 02/17/2025 Statin declined 02/17/2025 Administrative encounter 08/19/2024 Assessment & Plan (08/19/2024 2:29 PM CDT): A(n) yearly Medicare Annual Wellness Visit has been performed today. Tre Fox is not up to date on screening tests. He is in need of AAA Screening and hepatitis B screening . He is not up to date on needed preventative vaccinations; He is in need of Influenza and Pneumonia (Prevnar-13 or Pneumovax-23). We discussed healthy lifestyle habits, educational material has been given. Medications reviewed, changes documented as per the medical record and discussed with patient along with risks vs benefits. Specific topics reviewed: drugs, ETOH, and tobacco, importance of regular dental care, importance of regular exercise, importance of varied diet, limit TV, media violence, minimize junk food, and seat belts. Return in 6 months Bradycardia 07/24/2024 Assessment & Plan (07/24/2024 11:12 AM CDT): ECG 12 lead Date/Time: 07/24/2024 11:09 AM Performed by: Stephanie Caputo NP Authorized by: Stephanie Caputo NP Comparison: not compared with previous ECG Previous ECG: no previous ECG available Rhythm: sinus bradycardia Ectopy comments: infrequent PAC Rate: bradycardic QRS axis: normal Conduction: conduction normal ST Segments: ST segments normal T Waves: T waves normal Other: no other findings Clinical impression: normal ECG Hold on right sided neck exercises. Refer to cardiology. Likely vasovagal response, baseline HR is low due to baseline cardiac fitness. Since he's having symptoms, will refer to cardiology for evaluation. Well adult exam 08/19/2023 Assessment & Plan (08/19/2023 1:18 PM CDT): A(n) yearly well adult visit has been performed today. Tre Fox is not up to date on screening tests. He is in need of Prostate screening and Cholesterol screening. He is not up to date on needed preventative vaccinations; He is in need of Zoster. We discussed healthy lifestyle habits, educational material has been given. Medications reviewed, changes documented as per the medical record and discussed with patient along with risks vs benefits. Return in 1 year Seborrheic keratosis, inflamed 08/31/2021 Benign prostatic hyperplasia with nocturia 06/05 Umbilical hernia without obstruction and without gangrene 06/05/2018 Healthcare maintenance 04/29/2017 Assessment & Plan (04/29/2017 3:25 PM CDT): Reviewed screenings. Due for labs. He's had a colonoscopy. Up to date on td. Hypercholesterolemia 03/20/2014 Overview (02/08/2017): Hypercholesterolemia Immunizations Immunization Administration Dates Next Due Influenza, Split 11/04/2017 Influenza, Unspecified 08/19/2024(Deferr ed: Patient Refused),11/21/2023(Deferred: Patient Refused),05/04/2023(Deferred: Patient Refused),11/04/2022(Deferred: Patient Refused),08/16/2022(Deferred: Patient Refused),08/04/2019(Deferred: Patient Refused) Tdap 09/10/2016,02/19/2011 Social History Tobacco Use Types Packs/Day Years Used Date Smoking Tobacco: Former Cigarettes 0.5 17 1 982 - 1998 Tobacco Cessation:Counseling Given: Not Answered Alcohol Use Standard Drinks/Week Comments No 0 [...] week 08/16/2021 How often do you attend shinto or christian serv ices? Never 08/16/2021 Do you belong to any clubs o r organizations such as shinto groups, unions, fraternal or athletic groups, or [...] staff should administer the PHQ-9) 0 02/17/[facility]ational [facility] Questionnaire Answer Date Recorded [...] place to sleep or slept in a alf (including now)? No 08/16/2021 Education Answer Date Recorded What is the highest level of school you have completed or the highest degree you have received? Associate degree: occupational, technical, or vocational program 08/10/2020 Sex and Gender Information Value Date Recorded Sex Assigned at Not on file Legal Sex Male 10:14 AM CLERK RATING Gender Identity Not on file Sexual Orientation Not on file Occupation Industry Job Start Date Job End Date Not on file Not on file Not on file Not on file Not on file Not on file Not on file Not on file Last Filed Vital Signs Vital Sign Reading Time Taken Comments Blood Pressure 142/69 03/12/2025 8:48 AM CDT Lg. Adult Cuff Pulse 53 03/12/2025 8:48 AM CDT Temperature 36.1 C (96.9 F) 02/17/2025 8:23 AM CDT Respiratory Rate 16 03/12/2025 8:48 AM CDT Oxygen Saturation 97% 03/12/2025 8:4 8 AM CDT Inhaled Oxygen Concentration - - Weight 74.4 kg (164 lb) 03/12/2025 8:48 AM CDT Height 175.3 cm (5' 9 ) 03/12/2025 8:48 AM CDT Body Mass Index 24.22 03/12/2025 8:48 AM CDT Plan of Treatment Not on file Procedures Procedure Name Priority Date/Time Associated Diagnosis Comments EGFR Routine 02/13/2025 7:17 AM CDT Hypercholesterolem ia DIFFERENTIAL AUTO Routine 02/13/2025 7:1 7 AM CDT Hypercholesterolem ia CBC WITH AUTO DIFFERENTIAL Routine 02/13/2025 7:17 AM CDT Hypercholesterolem ia COMPREHENSIVE METABOLIC PANEL Routine 02/13/2025 7:17 AM CDT Hypercholesterolem ia LIPID PANEL Routine 02/13/2025 7:17 AM CDT Hypercholesterolem ia PSA DIAGNOSTIC Routine 02/13/2025 7:17 AM CDT Benign prostatic hyperplasia with nocturia HEPATITIS B SURFACE ANTIGEN Routine 02/13/2025 7:17 AM CDT Need for hepatitis B screening test HEPATITIS B CORE ANTIBODY, TOTAL Routine 02/13/2025 7:17 AM CDT Need for hepatitis B screening test HEPATITIS B SURFACE ANTIBODY (IMMUNE STATUS) Routine 02/13/2025 7:17 AM CDT Need for hepatitis B screening test MRI SHOULDER LEFT WO CONTRAST Schedule Routine, Read Routine (OP Routine) 02/03/2025 3:53 PM CDT Acute pain of left shoulder due to trauma Bony sclerosis XR SHOULDER LEFT 2 OR MORE VIEWS Schedule Routine, Read Routine (OP Routine) 01/26/2025 9:11 AM CDT Acute pain of left shoulder US ABDOMINAL AORTIC ANEURYSM SCREENING Schedule Routine, Read Routine (OP Routine) 10/23/2024 3:59 PM CLERK RATING Screening for abdominal aortic aneurysm HEPATITIS C ANTIBODY Routine 11/01/2020 HM COLONOSCOPY Routine 08/14/2018 from Last 3 Months or Most Recently Relevant to Health Maintenance Results * eGFR (02/13/2025 7:17 AM CDT) eGFR >90 >=60 mL/min/1. 73 m2 Comment: Interpretive Data Reference Interval Normal >/= 90 mL/min/1.73m2 Mildly decreased* 60 - 89 mL/min/1.73m2 Mildly to moderately decreased 45 - 59 mL/min/1.73m2 Moderately to severely decreased 30 - 44 mL/min/1.73m2 Severely decreased 15 - 29 mL/min/1.73m2 Kidney Failure < 15 mL/min/1.73m2 *Relative to young adult level Estimated glomerular filtration rate is determined by the 2020 CKD-EPI equation recommended by the National Kidney Foundation (A Unifying Approach to GFR Estimation: Recommendations of the NKF-ASK Task Force on Reassessing the Inclusion of Race in Diagnosing Kidney Disease, JASN 2020). The CKD-EPI equation should not be used for patients with unstable renal function and has not been validated in children and those over 70. Current interpretive data was last reviewed 2021. Blood 02/13/2025 7:17 AM CDT 02/13/2025 7:51 AM CDT us Rashaad Quinn MD LAB BLOOD ORDERABLES Final Result [facility] ([place]) 1 [facility] Department [place] [address] * Differential, auto (02/13/2025 7:17 AM CDT) Neutrophil abs 2.20 1.50 - 6.50 K/cumm Imm gran abs 0.01 0.00 - 0.10 K/cumm [facility] ([place]) Lymphocyte abs 1.45 0.80 - 3.30 K/cumm [facility] ([place]) Monocyte abs 0.47 0.20 - 0.80 K/cumm [facility] ([place]) Eosinophil abs 0.17 0.00 - 0.50 K/cumm [facility] ([place]) Basophil abs 0.03 0.00 - 0.10 K/cumm [facility] ([place]) Neutrophil pct 50.8 % [facility] ([place]) Comment: Interpretive Data Percent cell count reference ranges are not reported, since discordance with absolute values may lead to misinterpretation of CBC data. Current Interpretive Data was last revised on 2018. Imm gran pct 0.2 % [facility] ([place]) Comment: Interpretive Data Percent cell count reference ranges are not reported, since discordance with absolute values may lead to misinterpretation of CBC data. Current Interpretive Data was last revised on 2018. Lymphocyte pct 33.5 % [facility] ([place]) Comment: Interpretive Data Percent cell count reference ranges are not reported, since discordance with absolute values may lead to misinterpretation of CBC data. Current Interpretive Data was last revised on 2018. Monocyte pct 10.9 % [facility] ([place]) Comment: Interpretive Data Percent cell count reference ranges are not reported, since discordance with absolute values may lead to misinterpretation of CBC data. Current Interpretive Data was last revised on 2018. Eosinophil pct 3.9 % [facility] ([place]) Comment: Interpretive Data Percent cell count reference ranges are not reported, since discordance with absolute values may lead to misinterpretation of CBC data. Current Interpretive Data was last revised on 2018. Basophil pct 0.7 % [facility] ([place]) Comment: Interpretive Data Percent cell count reference ranges are not reported, since discordance with absolute values may lead to misinterpretation of CBC data. Current Interpretive Data was last revised on 2018. Blood 02/13/2025 7:17 AM CDT 02/13/2025 7:51 AM CDT us Rashaad Quinn MD LAB BLOOD ORDERABLES Final Result [facility] ([place]) 1 [facility] Department [place] [address] * CBC with auto differential (02/13/2025 7:17 AM CDT) WBC 4.33 3.80 - 9.90 K/cumm Hgb 13.3 13.0 - 17.5 g/dL [facility] ([place]) Hct 40.9 38.9 - 50.3 % [facility] ([place]) Plt 264 150 - 400 K/cumm [facility] ([place]) MPV 10.3 9.1 - 12.3 fL [facility] ([place]) RBC 4.58 4.30 - 5.80 M/cumm [facility] ([place]) MCV 89.3 81.3 - 96.4 fL [facility] ([place]) MCH 29.0 27.1 - 33.3 pg [facility] ([place]) MCHC 32.5 32.3 - 35.7 g/dL [facility] ([place]) RDW CV 13.2 11.1 - 14.9 % [facility] ([place]) RDW SD 43.8 35.7 - 48.1 fL [facility] (RM) NRBC abs 0.00 0.00 - 0.01 K/cumm [facility] ([place]) Blood 02/13/2025 7:17 AM CDT 02/13/2025 7:51 AM CDT Rashaad Quinn MD LAB BLOOD ORDERABLES Final Result Performing Organization Address City/[facility] Co de Phone Number [facility] ([place]) 1 [facility] [place] [address] * Hepatitis B core antibody, total Blood (02/13/2025 7:17 AM CDT) Hep B core IgG/IgM Nonreactive Nonreactive Comment:Testing performed by : [facility], [address] [place] [address], [address] Blood 02/13/2025 7:17 AM CDT 02/13/2025 2:06 PM CDT Rashaad Quinn MD LAB MICROBIOLOGY - GENERAL ORDERABLES Final Result Performing Organization Address City/[facility] Co de Phone Number [facility] ([place]) 1 [facility] [place] [address] * Hepatitis B surface antibody (immune status) Blood (02/13/2025 7:17 AM CDT) HBsAb (immune status) Nonreactive Comment: Interpretive Data Nonreactive: This result is consistent with a lack of immunity to Hepatitis B Virus when used in the setting of routine screening. Equivocal: The immune status of the individual should be further assessed, if appropriate, after consideration of clinical status, risk factors, and additional diagnostic information. Reactive: This result is consistent with immunity to Hepatitis B Virus when used in the setting of routine screening. Current interpretive data was last revised on 20. Testing performed by: [facility], [address] [place] [address], [address] Blood 02/13/2025 7:17 AM CDT 02/13/2025 1:35 PM CDT Result [facility] Rashaad Quinn MD LAB MICROBIOLOGY - GENERAL ORDERABLES Final Result Performing Organization Address [facility] Co de Phone Number [facility] ([place]) 1 [place] [address] * Hepatitis B Surface Antigen Blood (02/13/2025 7:17 AM CDT) HepBsAg Nonreactive Nonreactive Comment:Testing performed by : [address], [address] Blood 02/13/2025 7:17 AM CDT 02/13/2025 1:35 PM CDT Result [facility] Rashaad Quinn MD LAB MICROBIOLOGY - GENERAL ORDERABLES Final Result Performing Organization Address [facility] de Phone Number [facility] ([facility]GG[facility]) 1 [place] [address] * PSA diagnostic (02/13/2025 7:17 AM CDT) PSA-Total 0.51 <=5.40 ng/mL Comment: Interpretive Data AGE SEX REFERENCE INTERVAL 0 minutes-150 years Female None 0 minutes-49 years Male None 50-59 years Male 0-3.90 60-69 years Male 0-5.40 70-79 years Male 0-6.20 80-150 years Male 0-6.20 The Gage PSA Total assay procedure was used. Results from different manufacturers or methods may not be comparable. Serial testing should be performed using the same method. Current interpretive data last revised 22. Blood 02/13/2025 7:17 AM CDT 02/13/2025 7:51 AM CDT Result [facility] Rashaad Quinn MD LAB BLOOD ORDERABLES Final Result [facility] ([place]) 1 [facility] Department [place] [address] * Lipid panel (02/13/2025 7:17 AM CDT) Cholesterol 196 30 - 199 mg/dL Comment: Interpretive Data Ages < or = 19 years Acceptable: <170 mg/dL Borderline high: 170-199 mg/dL High: >or= 200 mg/dL Ages > or = 20 years Desirable: <200 mg/dL Borderline high: 200-239 mg/dL High: >or= 240 mg/dL Literature References: 1. Expert Panel on Integrated Guidelines for Cardiovascular Health and Risk Reduction in Children and Adolescents. Pediatrics 2011;128:S213 2. NCEP Expert Panel. Circulation 2004;110:227 Current Interpretive Data was last revised on 2018. Triglycerides 58 <=149 mg/dL [facility] (RM) Comment: Interpretive Data Ages < or = 9 years Acceptable: <75 mg/dL Borderline high: 75-99 mg/dL High: >or= 100 mg/dL Ages 10 to 20 years Acceptable: <90 mg/dL Borderline high: 90-129 mg/dL High: >or= 130 mg/dL Ages > or = 20 years Desirable: <150 mg/dL Borderline high: 150-199 mg/dL High: 200-499 mg/dL Very high: >or= 499 mg/dL Literature References: 1. Expert Panel on Integrated Guidelines for Cardiovascular Health and Risk Reduction in Children and Adolescents. Pediatrics 2011;128:S213 2. NCEP Expert Panel. Circulation 2004;110:227 Current Interpretive Data was last revised on 2018. HDL 73 >=40 mg/dL [facility] ([place]) Comment: Interpretive Data Ages < or = 19 years Acceptable: >45 mg/dL Borderline low: 40-45 mg/dL Low: <40 mg/dL Ages > or = 20 years Desirable: >or= 60 mg/dL Low: <40 mg/dL Literature References: 1. Expert Panel on Integrated Guidelines for Cardiovascular Health and Risk Reduction in Children and Adolescents. Pediatrics 2011;128:S213 2. NCEP Expert Panel. Circulation 2004;110:227 Current Interpretive Data was last revised on 2018. LDL, calculated 112 <=129 mg/dL [facility] ([place]) Comment: Interpretive Data Ages < or = 19 years Acceptable: <110 mg/dL Borderline high: 110-129 mg/dL High: >or= 130 mg/dL Ages > or = 20 years Optimal: <100 mg/dL Near optimal: 100-129 mg/dL Borderline high: 130-159 mg/dL High: >160 mg/dL Calculated using the Ilir LDL-C estimating equation. This equation was implemented on 2024. Prior to this date LDL-C was estimated using the Friedewald equation. Literature References: 1. Expert Panel on Integrated Guidelines for Cardiovascular Health and Risk Reduction in Children and Adolescents. Pediatrics 2011;128:S213 2. NCEP Expert Panel. Circulation 2004;110:227 3. Ilir Ribeiro et al. [place] Cardiol. 2019March 04;5(5):540-548. doi: 10.1001/jamacardio.2020.0013 Current Interpretive Data was last revised on 2024. Non-HDL Cholesterol 123 mg/dL [facility] ([place]) Comment: Interpretive Data Ages < or = 19 years Acceptable: <120 mg/dL Borderline high: 120-144 mg/dL High: >145 mg/dL Ages > or = 20 years When triglycerides are >200 mg/dL, Non-HDL cholesterol is a secondary target of therapy with treatment goals that are 30 mg/dL greater than the LDL cholesterol target. Literature References: 1. Expert Panel on Integrated Guidelines for Cardiovascular Health and Risk Reduction in Children and Adolescents. Pediatrics 2011;128:S213 2. NCEP Expert Panel. Circulation 2004;110:227 Current Interpretive Data was last revised on 2018. Chol/HDL ratio 3 [facility] ([place]) Blood 02/13/2025 7:17 AM CDT 02/13/2025 7:51 AM CDT us Rashaad Quinn MD LAB BLOOD ORDERABLES Final Result [facility] ([place]) 1 [facility] Department [place] [address] * (ABNORMAL) Comprehensive metabolic panel (02/13/2025 7:17 AM CDT) Sodium 136 135 - 145 mmol/L Potassium, pl 4.6 3.3 - 4.9 mmol/L [facility] ([place]) Chloride 102 97 - 110 mmol/L [facility] ([place]) CO2 26 22 - 32 mmol/L [facility] ([place]) Anion gap 9 2 - 15 mmol/L [facility] ([place]) BUN 14 6 - 25 mg/dL [facility] ([place]) Creatinine 0.70(L) 0.80 - 1.30 mg/dL [facility] ([place]) Glucose 99 70 - 199 mg/dL [facility] ([place]) Comment: Interpretive Data Fasting glucose >/= 126 mg/dl is diagnostic for diabetes. Fasting is defined as no caloric intake for at least 8 hours. Fasting glucose between 100 mg/dl to 125 mg/dl is diagnostic of prediabetes. In a patient with classic symptoms of hyperglycemia or hyperglycemic crisis, a random glucose >/= 200 mg/dl is diagnostic for diabetes. In the absence of unequivocal hyperglycemia, results should be confirmed by repeat testing. The classification and Diagnosis of Diabetes Diabetes Care 2021; 46: S19-S40. Current interpretive data was last revised 2022. Calcium 9.0 8.5 - 10.3 mg/dL [facility] ([place]) Bilirubin, total 0.6 0.1 - 1.2 mg/dL [facility] ([place]) Protein, pl 6.8 6.5 - 8.5 g/dL [facility] ([place]) Albumin 4.4 3.5 - 5.0 g/dL [facility] ([place]) Alk phos 63 40 - 130 Units/L [facility] ([place]) ALT 20 7 - 55 Units/L [facility] ([facility]) AST 23 10 - 50 Units/L [facility] ([place]) Blood 02/13/2025 7:17 AM CDT 02/13/2025 7:51 AM CDT us Rashaad Quinn MD LAB BLOOD ORDERABLES Final Result [facility] ([place]) 1 [facility] Department [place] [address] * MRI Shoulder Left WO Contrast (02/03/2025 3:53 PM CDT) Anatomical Region Laterality Modality Upper Extremities Left Magnetic Reson ance 02/05/2025 10:0 9 AM CDT Narrative 02/05/2025 10:13 AM CDT EXAM DESCRIPTION: MRI SHOULDER LEFT WO CONTRAST REASON FOR STUDY: Shoulder trauma, rotator cuff tear suspected, xray done, humeral head with sclerosis TECHNIQUE: Multiplanar, multisequence MRI of the left shoulder was performed without contrast. COMPARISON: None FINDINGS: Rotator Cuff: There is advanced supraspinatus tendinosis with full thickness essential full width tearing and tendon retraction to mid humeral head. There is moderate infraspinatus tendinosis without discrete tearing. The teres minor is intact. Intra-articular biceps is moderately tendinotic. Subscapularis mild tendinosis without discrete tearing. No muscle atrophy or edema. Biceps Tendon: The long head of the biceps tendon is located within the bicipital groove, without tear. Labrum: No tear is identified. Acromion and AC Joint: The coracoacromial and coracoclavicular ligaments are intact. 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 Type 2 acromion. Glenohumeral Articulation: No subluxation. Mild chondromalacia. Bones: No fracture. Joint and bursae: Small joint effusion and subacromial/subdeltoid bursitis. Several small intra-articular bodies. Soft Tissues: The scapular notch, and quadrilateral space are unremarkable. There is no axillary lymphadenopathy. IMPRESSION: Supraspinatus advanced tendinosis with full thickness essential full width tearing and tendon retraction to the mid humeral head. Infraspinatus moderate tendinosis without discrete tearing. Intra-articular biceps moderate tendinosis. Subscapularis mild tendinosis without discrete tearing. Acromioclavicular articulation moderate osteoarthritis. Glenohumeral articulation mild chondromalacia. Small joint effusion and subacromial/subdeltoid bursitis. Several small intra-articular bodies. THIS IS AN ELECTRONICALLY VERIFIED FINAL REPORT 02/05/2025 10:13 AM - Electronically signed by Roscoe So M.D. JA: ASHISH Report ID: [id number] Reading Location: [id number] Procedure Note Roscoe So MD - 02/05/2025 EXAM DESCRIPTION: MRI SHOULDER LEFT WO CONTRAST REASON FOR STUDY: Shoulder trauma, rotator cuff tear suspected, xray done, humeral head with sclerosis TECHNIQUE: Multiplanar, multisequence MRI of the left shoulder wasperformed without contrast. COMPARISON: None FINDINGS: Rotator Cuff: There is advanced supraspinatus tendinosis with fullthickness essential full width tearing and tendon retraction to mid humeral head.There is moderate infraspinatus tendinosis without discrete tearing. The teres minor is intact. Intra-articular biceps is moderately tendinotic. Subscapularis mild tendinosis without discrete tearing. No muscle atrophyor edema. Biceps Tendon: The long head of the biceps tendon is located within the bicipital groove, without tear. Labrum: No tear is identified. Acromion and AC Joint: The coracoacromial and coracoclavicular ligamentsare intact. 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 Type 2 acromion. Glenohumeral Articulation: No subluxation. Mild chondromalacia. Bones: No fracture. Joint and bursae: Small joint effusion and subacromial/subdeltoidbursitis. Several small intra-articular bodies. Soft Tissues: The scapular notch, and quadrilateral space areunremarkable. There is no axillary lymphadenopathy. IMPRESSION: Supraspinatus advanced tendinosis with full thickness essential fullwidth tearing and tendon retraction to the mid humeral head. Infraspinatus moderate tendinosis witho [id number]|2025-03-18 02:39:00|2025-03-18 02:39:00|XMS_ITS|SHAUN BONNER|External Medical Summaries|[id number]|" Clinical Summary Created on: March 18, 2025 Tre Fox : 1960 Sex: Male Author Organization [facility] Building [address] Address [address] [place] [address] Care Team Providers Care Medical Information Officer Name Role Phone Rashaad Quinn MD Primary Care Provider [phone] Ori Eduardo MD Unavailable [phone] Allergies No known active allergies Medications flaxseed oil oil Active cholecalciferol , vitamin D3, (VITAMIN D3 ORAL) Take by mouth Active calcium carbonate (CALCIUM 600 ORAL) Take by mouth Active naproxen (NAPROSYN) 500 mg tabletIndicatio ns:Right ear pain Take 1 tablet (500 mg total) by mouth 2 (two) times a day as needed for pain (pain) 30 tablet 4 02/18/20 25 Discontinued Active Problems Problem Noted Date Diagnosed Date Rotator cuff tear arthropathy of left shoulder 0 02/17/2025 Statin declined 02/17/2025 Administrative encounter 08/19/2024 Assessment & Plan (08/19/2024 2:29 PM CDT): A(n) yearly Medicare Annual Wellness Visit has been performed today. Tre Fox is not up to date on screening tests. He is in need of AAA Screening and hepatitis B screening . He is not up to date on needed preventative vaccinations; He is in need of Influenza and Pneumonia (Prevnar-13 or Pneumovax-23). We discussed healthy lifestyle habits, educational material has been given. Medications reviewed, changes documented as per the medical record and discussed with patient along with risks vs benefits. Specific topics reviewed: drugs, ETOH, and tobacco, importance of regular dental care, importance of regular exercise, importance of varied diet, limit TV, media violence, minimize junk food, and seat belts. Return in 6 months Bradycardia 07/24/2024 Assessment & Plan (07/24/2024 11:12 AM CDT): ECG 12 lead Date/Time: 07/24/2024 11:09 AM Performed by: Stephanie Caputo NP Authorized by: Stephanie Caputo NP Comparison: not compared with previous ECG Previous ECG: no previous ECG available Rhythm: sinus bradycardia Ectopy comments: infrequent PAC Rate: bradycardic QRS axis: normal Conduction: conduction normal ST Segments: ST segments normal T Waves: T waves normal Other: no other findings Clinical impression: normal ECG Hold on right sided neck exercises. Refer to cardiology. Likely vasovagal response, baseline HR is low due to baseline cardiac fitness. Since he's having symptoms, will refer to cardiology for evaluation. Well adult exam 08/19/2023 Assessment & Plan (08/19/2023 1:18 PM CDT): A(n) yearly well adult visit has been performed today. Tre Fox is not up to date on screening tests. He is in need of Prostate screening and Cholesterol screening. He is not up to date on needed preventative vaccinations; He is in need of Zoster. We discussed healthy lifestyle habits, educational material has been given. Medications reviewed, changes documented as per the medical record and discussed with patient along with risks vs benefits. Return in 1 year Seborrheic keratosis, inflamed 08/31/2021 Benign prostatic hyperplasia with nocturia 06/05 Umbilical hernia without obstruction and without gangrene 06/05/2018 Healthcare maintenance 04/29/2017 Assessment & Plan (04/29/2017 3:25 PM CDT): Reviewed screenings. Due for labs. He's had a colonoscopy. Up to date on td. Hypercholesterolemia 03/20/2014 Overview (02/08/2017): Hypercholesterolemia Encounters Date Type Department Care Team Description 03/12/2025 8:45 AM CDT Office Visit [facility] at [address] [phone] Datillo, Osiris Khushbu, ADJUNCT WRITING INSTRUCTOR Bradycardia (Primary Dx); Hypercholesterolemia 02/17/2025 8:30 AM CDT Office Visit [facility] Care at [address] [phone] Rashaad Quinn MD Hypercholesterolemia (Primary Dx); Benign prostatic hyperplasia with nocturia; Rotator cuff tear arthropathy of left shoulder 02/15/2025 Results Follow-Up [facility] Primary Care at [address] [phone] Rashaad Quinn MD 02/13/2025 7:15 AM CDT Lab [address] [phone] Need for hepatitis B screening test; Benign prostatic hyperplasia with nocturia; Hypercholesterolemia 02/05/2025 Results Follow-Up [facility] at [address] [phone] Mchgee, Asia, ADJUNCT WRITING INSTRUCTOR Tear of left supraspinatus tendon (Primary Dx) 02/03/2025 3:14 PM CDT - 02/03/2025 11:59 PM CDT Hospital Encounter [facility] [address] [place] [address] Acute pain of left shoulder due to trauma; Bony sclerosis Discharge Disposition: Discharge to home or self care 01/26/2025 9:05 AM CDT Ancillary Procedure [facility] at [address] [phone] Acute pain of left shoulder 01/26/2025 Orders Only [facility] Primary Care at [address] [phone] Mcghee, Asia, ADJUNCT WRITING INSTRUCTOR Acute pain of left shoulder due to trauma (Primary Dx); Bony sclerosis 01/26/2025 Results Follow-Up [facility] at [address] [phone] Mcghee, Asia, ADJUNCT WRITING INSTRUCTOR 01/20/2025 2:30 PM CDT Office Visit [facility] Primary Care at [address] [phone] Mcghee, Asia, ADJUNCT WRITING INSTRUCTOR Acute pain of left shoulder (Primary Dx) from Last 3 Months Immunizations Immunization Administration Dates Next Due Influenza, Split 11/04/2017 Influenza, Unspecified 08/19/2024(Deferr ed: Patient Refused),11/21/2023(Deferred: Patient Refused),05/04/2023(Deferred: Patient Refused),11/04/2022(Deferred: Patient Refused),08/16/2022(Deferred: Patient Refused),08/04/2019(Deferred: Patient Refused) Tdap 09/10/2016,02/19/2011 Surgical History Surgery Date Site/Laterality Comments OTHER SURGICAL HISTORY 11/04/2018 - 11/03/2019 INGUINAL HERNIA: herniorraphy OTHER SURGICAL HISTORY 11/04/1963 - 11/03/1964 appendicits: Appendectomy OTHER SURGICAL HISTORY 11/04/1989 - 11/03/1990 Right knee pain: bilateral arthroscopy KNEE ARTHROSCOPY 11/04/1995 - 11/03/1996 Medical History Medical History Date Comments Hx Other Medical INGUINAL HERNIA Hx Other Medical appendicits Hx Other Medical knee pain Family History Medical History Relation Name Comments Hypertension Brother Hypertension; Hypertension Father Hypertension; Liver cancer Mother Cancer -liver; Breast cancer Sister Relation Name Status Comments Brother Father Mother Sister Social History Tobacco Use Types Packs/Day Years Used Date Smoking Tobacco: Former Cigarettes 0.5 17 1 982 - 1998 Tobacco Cessation:Counseling Given: Not Answered Alcohol Use Standard Drinks/Week Comments No 0 [...] week 08/16/2021 How often do you attend shinto or christian serv ices? Never 08/16/2021 Do you belong to any clubs o r organizations such as shinto groups, unions, fraternal or athletic groups, or [...] staff should administer the PHQ-9) 0 02/17/2025 [facility] - Occupational Stress Questionnaire Answer Date Recorded [...] place to sleep or slept in a alf (including now)? No 08/16/2021 Education Answer Date Recorded What is the highest level of school you have completed or the highest degree you have received? 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 Adult Cuff Pulse 53 03/12/2025 8:48 AM CDT Temperature 36.1 C (96.9 F) 02/17/2025 8:23 AM CDT Respiratory Rate 16 03/12/2025 8:48 AM CDT Oxygen Saturation 97% 03/12/2025 8:4 8 AM CDT Inhaled Oxygen Concentration - - Weight 74.4 kg (164 lb) 03/12/2025 8:48 AM CDT Height 175.3 cm (5' 9 ) 03/12/2025 8:48 AM CDT Body Mass Index 24.22 03/12/2025 8:48 AM CDT Plan of Treatment Health Maintenance Due Date Last Done Comments Well Visit 65+ 08/19/2025 08/19/2024, 08/04, 08/16/2022, Additional history exists Zoster Vaccine (1 of 2) 08/19/2025 Post poned from 2008 (Insurance / Financial) Fall Risk Assessment 01/20/2026 01/20/2025, 08/19/2024, 11/21/2023, Additional history exists Depression Screening 02/17/2026 02/17/2025, 01/20/2025, 08/19/2024, Additional history exists DTaP/Tdap/Td Vaccine (3 - Td or Tdap) 09/10/2026 09/10/2016, 02/19/2011 Prostate Cancer Screening-PSA 02/13/2027 02/13/2025, 08/17/2024, 11/01/2020 Colon Cancer Screening-Colonoscopy 08/14/2028 08/14/2018, 11/19/2011 Influenza Vaccine Discontinued 11/04/2017 Colon Cancer Screening-CT Colonography Discontinued 08/14/2018, 11/19/2011 Colon Cancer Screening-DNA Stool Discontinued 08/14/2018, 11/19/2011 Colon Cancer Screening-FIT Discontinued 08/14/2018, Colon Cancer Screening-Sigmoidoscopy Discontinued 08/14/2018, 11/19/2011 Hepatitis C Screening Completed 11/01/2020 Abdominal Aortic Aneurysm (AAA) Screen Completed 10/23/2024 Hepatitis B Screening Completed 02/13/2025 Pneumococcal vaccine 65+ Discontinued Procedures Procedure Name Priority Date/Time Associated Diagnosis Comments EGFR Routine 02/13/2025 7:17 AM CDT Hypercholesterolem ia DIFFERENTIAL AUTO Routine 02/13/2025 7:1 7 AM CDT Hypercholesterolem ia CBC WITH AUTO DIFFERENTIAL Routine 02/13/2025 7:17 AM CDT Hypercholesterolem ia COMPREHENSIVE METABOLIC PANEL Routine 02/13/2025 7:17 AM CDT Hypercholesterolem ia LIPID PANEL Routine 02/13/2025 7:17 AM CDT Hypercholesterolem ia PSA DIAGNOSTIC Routine 02/13/2025 7:17 AM CDT Benign prostatic hyperplasia with nocturia HEPATITIS B SURFACE ANTIGEN Routine 02/13/2025 7:17 AM CDT Need for hepatitis B screening test HEPATITIS B CORE ANTIBODY, TOTAL Routine 02/13/2025 7:17 AM CDT Need for hepatitis B screening test HEPATITIS B SURFACE ANTIBODY (IMMUNE STATUS) Routine 02/13/2025 7:17 AM CDT Need for hepatitis B screening test MRI SHOULDER LEFT WO CONTRAST Schedule Routine, Read Routine (OP Routine) 02/03/2025 3:53 PM CDT Acute pain of left shoulder due to trauma Bony sclerosis XR SHOULDER LEFT 2 OR MORE VIEWS Schedule Routine, Read Routine (OP Routine) 01/26/2025 9:11 AM CDT Acute pain of left shoulder US ABDOMINAL AORTIC ANEURYSM SCREENING Schedule Routine, Read Routine (OP Routine) 10/23/2024 3:59 PM CLERK RATING Screening for abdominal aortic aneurysm HEPATITIS C ANTIBODY Routine 11/01/2020 HM COLONOSCOPY Routine 08/14/2018 from Last 3 Months or Most Recently Relevant to Health Maintenance Results * eGFR (02/13/2025 7:17 AM CDT) eGFR >90 >=60 mL/min/1. 73 m2 Comment: Interpretive Data Reference Interval Normal >/= 90 mL/min/1.73m2 Mildly decreased* 60 - 89 mL/min/1.73m2 Mildly to moderately decreased 45 - 59 mL/min/1.73m2 Moderately to severely decreased 30 - 44 mL/min/1.73m2 Severely decreased 15 - 29 mL/min/1.73m2 Kidney Failure < 15 mL/min/1.73m2 *Relative to young adult level Estimated glomerular filtration rate is determined by the 2020 CKD-EPI equation recommended by the National Kidney Foundation (A Unifying Approach to GFR Estimation: Recommendations of the NKF-ASK Task Force on Reassessing the Inclusion of Race in Diagnosing Kidney Disease, JASN 2020). The CKD-EPI equation should not be used for patients with unstable renal function and has not been validated in children and those over 70. Current interpretive data was last reviewed 2021. Blood 02/13/2025 7:17 AM CDT 02/13/2025 7:51 AM CDT us Rashaad Quinn MD LAB BLOOD ORDERABLES Final Result [facility] ([place]) 1 [facility] Department [place] [address] * Differential, auto (02/13/2025 7:17 AM CDT) Neutrophil abs 2.20 1.50 - 6.50 K/cumm Imm gran abs 0.01 0.00 - 0.10 K/cumm [facility] ([place]) Lymphocyte abs 1.45 0.80 - 3.30 K/cumm [facility] ([place]) Monocyte abs 0.47 0.20 - 0.80 K/cumm [facility] ([place]) Eosinophil abs 0.17 0.00 - 0.50 K/cumm [facility] ([place]) Basophil abs 0.03 0.00 - 0.10 K/cumm [facility] ([place]) Neutrophil pct 50.8 % [facility] ([place]) Comment: Interpretive Data Percent cell count reference ranges are not reported, since discordance with absolute values may lead to misinterpretation of CBC data. Current Interpretive Data was last revised on 2018. Imm gran pct 0.2 % [facility] ([place]) Comment: Interpretive Data Percent cell count reference ranges are not reported, since discordance with absolute values may lead to misinterpretation of CBC data. Current Interpretive Data was last revised on 2018. Lymphocyte pct 33.5 % [facility] ([place]) Comment: Interpretive Data Percent cell count reference ranges are not reported, since discordance with absolute values may lead to misinterpretation of CBC data. Current Interpretive Data was last revised on 2018. Monocyte pct 10.9 % [facility] ([place]) Comment: Interpretive Data Percent cell count reference ranges are not reported, since discordance with absolute values may lead to misinterpretation of CBC data. Current Interpretive Data was last revised on 2018. Eosinophil pct 3.9 % [facility] ([place]) Comment: Interpretive Data Percent cell count reference ranges are not reported, since discordance with absolute values may lead to misinterpretation of CBC data. Current Interpretive Data was last revised on 2018. Basophil pct 0.7 % [facility] ([place]) Comment: Interpretive Data Percent cell count reference ranges are not reported, since discordance with absolute values may lead to misinterpretation of CBC data. Current Interpretive Data was last revised on 2018. Blood 02/13/2025 7:17 AM CDT 02/13/2025 7:51 AM CDT us Rashaad Quinn MD LAB BLOOD ORDERABLES Final Result [facility] ([place]) 1 [facility] Department [place] [address] * CBC with auto differential (02/13/2025 7:17 AM CDT) WBC 4.33 3.80 - 9.90 K/cumm Hgb 13.3 13.0 - 17.5 g/dL [facility] ([place]) Hct 40.9 38.9 - 50.3 % [facility] ([place]) Plt 264 150 - 400 K/cumm [facility] ([place]) MPV 10.3 9.1 - 12.3 fL [facility] ([place]) RBC 4.58 4.30 - 5.80 M/cumm [facility] ([place]) MCV 89.3 81.3 - 96.4 fL [facility] ([place]) MCH 29.0 27.1 - 33.3 pg [facility] ([place]) MCHC 32.5 32.3 - 35.7 g/dL [facility] ([place]) RDW CV 13.2 11.1 - 14.9 % [facility] ([place]) RDW SD 43.8 35.7 - 48.1 fL [facility] ([place]) NRBC abs 0.00 0.00 - 0.01 K/cumm [facility] ([place]) Blood 02/13/2025 7:17 AM CDT 02/13/2025 7:51 AM CDT Rashaad Quinn MD LAB BLOOD ORDERABLES Final Result Performing Organization Address City/[facility]/ZIP Co de Phone Number [facility] ([place]) 1 [facility] [place] [address] * Hepatitis B core antibody, total Blood (02/13/2025 7:17 AM CDT) Hep B core IgG/IgM Nonreactive Nonreactive Comment:Testing performed by : [facility], [address] [place] [address], [id number] Blood 02/13/2025 7:17 AM CDT 02/13/2025 2:06 PM CDT Rashaad Quinn MD LAB MICROBIOLOGY - GENERAL ORDERABLES Final Result Performing Organization Address City/[facility] Co de Phone Number [facility] ([place]) [address] [place] [address] * Hepatitis B surface antibody (immune status) Blood (02/13/2025 7:17 AM CDT) HBsAb (immune status) Nonreactive Comment: Interpretive Data Nonreactive: This result is consistent with a lack of immunity to Hepatitis B Virus when used in the setting of routine screening. Equivocal: The immune status of the individual should be further assessed, if appropriate, after consideration of clinical status, risk factors, and additional diagnostic information. Reactive: This result is consistent with immunity to Hepatitis B Virus when used in the setting of routine screening. Current interpretive data was last revised on 20. Testing performed by: [facility], [address] [place] [address], [place]., [address] Blood 02/13/2025 7:17 AM CDT 02/13/2025 1:35 PM CDT Rashaad Quinn MD LAB MICROBIOLOGY - GENERAL ORDERABLES Final Result [facility] ([place]) 1 [facility] [place] [address] * Hepatitis B Surface Antigen Blood (02/13/2025 7:17 AM CDT) HepBsAg Nonreactive Nonreactive Comment:Testing performed by : [facility], [address] [place] [address], [id number] Blood 02/13/2025 7:17 AM CDT 02/13/2025 1:35 PM CDT Rashaad Quinn MD LAB MICROBIOLOGY - GENERAL ORDERABLES Final Result Performing Organization Address [facility] Co de Phone Number [facility] ([place]) 1 [facility] [place] [address] * PSA diagnostic (02/13/2025 7:17 AM CDT) PSA-Total 0.51 <=5.40 ng/mL Comment: Interpretive Data AGE SEX REFERENCE INTERVAL 0 minutes-150 years Female None 0 minutes-49 years Male None 50-59 years Male 0-3.90 60-69 years Male 0-5.40 70-79 years Male 0-6.20 80-150 years Male 0-6.20 The Gage PSA Total assay procedure was used. Results from different manufacturers or methods may not be comparable. Serial testing should be performed using the same method. Current interpretive data last revised 22. Blood 02/13/2025 7:17 AM CDT 02/13/2025 7:51 AM CDT Rashaad Quinn MD LAB BLOOD ORDERABLES Final Result [facility] ([place]) 1 [facility] [place] [address] * Lipid panel (02/13/2025 7:17 AM CDT) Cholesterol 196 30 - 199 mg/dL Comment: Interpretive Data Ages < or = 19 years Acceptable: <170 mg/dL Borderline high: 170-199 mg/dL High: >or= 200 mg/dL Ages > or = 20 years Desirable: <200 mg/dL Borderline high: 200-239 mg/dL High: >or= 240 mg/dL Literature References: 1. Expert Panel on Integrated Guidelines for Cardiovascular Health and Risk Reduction in Children and Adolescents. Pediatrics 2011;128:S213 2. NCEP Expert Panel. Circulation 2004;110:227 Current Interpretive Data was last revised on 2018. Triglycerides 58 <=149 mg/dL [facility] ([place]) Comment: Interpretive Data Ages < or = 9 years Acceptable: <75 mg/dL Borderline high: 75-99 mg/dL High: >or= 100 mg/dL Ages 10 to 20 years Acceptable: <90 mg/dL Borderline high: 90-129 mg/dL High: >or= 130 mg/dL Ages > or = 20 years Desirable: <150 mg/dL Borderline high: 150-199 mg/dL High: 200-499 mg/dL Very high: >or= 499 mg/dL Literature References: 1. Expert Panel on Integrated Guidelines for Cardiovascular Health and Risk Reduction in Children and Adolescents. Pediatrics 2011;128:S213 2. NCEP Expert Panel. Circulation 2004;110:227 Current Interpretive Data was last revised on 2018. HDL 73 >=40 mg/dL [facility] ([place]) Comment: Interpretive Data Ages < or = 19 years Acceptable: >45 mg/dL Borderline low: 40-45 mg/dL Low: <40 mg/dL Ages > or = 20 years Desirable: >or= 60 mg/dL Low: <40 mg/dL Literature References: 1. Expert Panel on Integrated Guidelines for Cardiovascular Health and Risk Reduction in Children and Adolescents. Pediatrics 2011;128:S213 2. NCEP Expert Panel. Circulation 2004;110:227 Current Interpretive Data was last revised on 2018. LDL, calculated 112 <=129 mg/dL [facility] ([place]) Comment: Interpretive Data Ages < or = 19 years Acceptable: <110 mg/dL Borderline high: 110-129 mg/dL High: >or= 130 mg/dL Ages > or = 20 years Optimal: <100 mg/dL Near optimal: 100-129 mg/dL Borderline high: 130-159 mg/dL High: >160 mg/dL Calculated using the Ilir LDL-C estimating equation. This equation was implemented on 2024. Prior to this date LDL-C was estimated using the Friedewald equation. Literature References: 1. Expert Panel on Integrated Guidelines for Cardiovascular Health and Risk Reduction in Children and Adolescents. Pediatrics 2011;128:S213 2. NCEP Expert Panel. Circulation 2004;110:227 3. Ilir Ribeiro et al. [place] Cardiol. 2020 March 04;5(5):540-548. doi: 10.1001/jamacardio.2020.0013 Current Interpretive Data was last revised on 2024. Non-HDL Cholesterol 123 mg/dL [facility]) Comment: Interpretive Data Ages < or = 19 years Acceptable: <120 mg/dL Borderline high: 120-144 mg/dL High: >145 mg/dL Ages > or = 20 years When triglycerides are >200 mg/dL, Non-HDL cholesterol is a secondary target of therapy with treatment goals that are 30 mg/dL greater than the LDL cholesterol target. Literature References: 1. Expert Panel on Integrated Guidelines for Cardiovascular Health and Risk Reduction in Children and Adolescents. Pediatrics 2011;128:S213 2. NCEP Expert Panel. Circulation 2004;110:227 Current Interpretive Data was last revised on 2018. Chol/HDL ratio 3 [facility] ([place]) Blood 02/13/2025 7:17 AM CDT 02/13/2025 7:51 AM CDT us Rashaad Quinn MD LAB BLOOD ORDERABLES Final Result [facility] ([place]) 1 [facility] Department of Laboratories [place], [place] [id number] * (ABNORMAL) Comprehensive metabolic panel (02/13/2025 7:17 AM CDT) Sodium 136 135 - 145 mmol/L Potassium, pl 4.6 3.3 - 4.9 mmol/L [facility] ([place]) Chloride 102 97 - 110 mmol/L [facility] ([place]) CO2 26 22 - 32 mmol/L [facility] ([place]) Anion gap 9 2 - 15 mmol/L [facility] ([place]) BUN 14 6 - 25 mg/dL [facility] ([place]) Creatinine 0.70(L) 0.80 - 1.30 mg/dL [facility] ([place]) Glucose 99 70 - 199 mg/dL [facility] ([place]) Comment: Interpretive Data Fasting glucose >/= 126 mg/dl is diagnostic for diabetes. Fasting is defined as no caloric intake for at least 8 hours. Fasting glucose between 100 mg/dl to 125 mg/dl is diagnostic of prediabetes. In a patient with classic symptoms of hyperglycemia or hyperglycemic crisis, a random glucose >/= 200 mg/dl is diagnostic for diabetes. In the absence of unequivocal hyperglycemia, results should be confirmed by repeat testing. The classification and Diagnosis of Diabetes Diabetes Care 2021; 46: S19-S40. Current interpretive data was last revised 2022. Calcium 9.0 8.5 - 10.3 mg/dL [facility] ([place]) Bilirubin, total 0.6 0.1 - 1.2 mg/dL [facility] ([place]) Protein, pl 6.8 6.5 - 8.5 g/dL [facility] ([place]) Albumin 4.4 3.5 - 5.0 g/dL [facility] ([place]) Alk phos 63 40 - 130 Units/L [facility] ([place]) ALT 20 7 - 55 Units/L [facility] ([place]) AST 23 10 - 50 Units/L [facility] ([place]) Blood 02/13/2025 7:17 AM CDT 02/13/2025 7:51 AM CDT us Rashaad Quinn MD LAB BLOOD ORDERABLES Final Result [facility] ([place]) 1 [facility] Department [place] [address] * MRI Shoulder Left WO Contrast (02/03/2025 3:53 PM CDT) Anatomical Region Laterality Modality Upper Extremities Left Magnetic Reson ance 02/05/2025 10:0 9 AM CDT Narrative 02/05/2025 10:13 AM CDT EXAM DESCRIPTION: MRI SHOULDER LEFT WO CONTRAST REASON FOR STUDY: Shoulder trauma, rotator cuff tear suspected, xray done, humeral head with sclerosis
--- OUTSIDE RECORDS SUMMARY | 2025-03-18 02:39 | XMS_ITS | Encounter Summary ---
Author Organization [facility] Healthcare Address [address] [place] [address] Care Team Providers Care Abrading Machine Tender Name Role Phone Rashaad Quinn MD Primary Care Provider [phone] Ori Eduardo MD Unavailable [phone] Encounter Details Date Type Department Care Team (Late st Contact Info) Description 01/26/2025 Results Follow-Up [facility] Medical Group Primary Care at [address] [address] Asia Mcghee NP [address] [facility] [address] [place] [address] Social History Tobacco Use Types Packs/Day Years Used Date Smoking Tobacco: Former Cigarettes 0.5 17 1 2 - 1998 Alcohol Use Standard Drinks/Week Comments [...] week 08/16/2021 How often do you attend yazidi or samaritan serv ices? Never 08/16/2021 Do you belong to any clubs o r organizations such as yazidi groups, unions, fraternal or athletic groups, or [...] points, staff should administer the PHQ-9) 0 01/20/2025 [facility] - Occupational Stress Questionnaire Answer Date [...] place to sleep or slept in a detention (including now)? No 08/16/2021 Education Answer Date Recorded What is the highest level of school you have completed or the highest degree you have received? 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 Yes-Action Needed documented in this encounter Plan of Treatment Not on file documented as of this encounter Visit Diagnoses Not on filedocumented in this encounter Care Teams Abrading Machine Tender Relationship Specialty Start Date End Date Rashaad Quinn MD PCP - General 02/19/11 Ori Eduardo MD [address] [facility] [address] [place] [address] Consulting Physician Orthopedic Surgery 08/16/21 documented as of this encounter
--- NOTE | 2025-03-18 07:15 | WPDHPUPDATE1 ---
History and Physical Update Update Date/Time: 03/18/25 07:15 History and Physical has been reviewed, including an updated exam of the patient. There are NO changes in the patient's condition. Risks, benefits, and alternatives have been discussed and questions answered. Patient agrees to proceed with procedure.
[2025-03-18] MEDS: LACTATED RINGERS 1,000 ML 30 ML IV CONT ×2 (09:15→12:28)
[2025-03-18] MEDS: KETOROLAC 15 MG/ML VIAL (*BKC) IV PUSH (09:50)
[2025-03-18] MEDS: ACETAMINOPHEN 500 MG TABLET 1000 MG PO (09:50)
--- NOTE | 2025-03-18 09:58 | WPDANESEPPF ---
Anes - Initial Pre Proc Eval Procedure: Operation Date: 03/18/25 10:30 Proposed Procedures p Left Shoulder Arthroscopy Rotator Cuff Repair with Subacromial Decompression - Ori Eduardo MD Date/Time: 03/18/25 09:58 Surgeon: Ori Eduardo MD Pre Op Diagnosis: Complete Let Rot Cuff Tear Patient Data Age: 64 Gender: M Height: 1.75 m Weight: 74.1 kg Allergies Allergy/AdvReac Type Severity Reaction Status Date / Time No Known Allergies Allergy Verified 03/05/25 15:44 Home Medications Medication Instructions Recorded Confirmed Type ascorbic acid (vitamin C) 500 mg 500 mg PO DAILY 03/05/25 03/18/25 History capsule,extended release cholecalciferol (vitamin D3) 10 10 mcg PO DAILY 03/05/25 03/18/25 History mcg (400 unit) capsule docosahexaenoic acid (dha)-epa 120 1 cap PO DAILY 03/05/25 03/18/25 History mg-180 mg capsule (Fish Oil) naproxen sodium 220 mg tablet 440 mg PO HS PRN pain 03/05/25 03/18/25 History (Aleve) vitamin E (dl, acetate) 45 mg (100 45 mg PO DAILY 03/05/25 03/18/25 History unit) capsule oxycodone-acetaminophen 5 mg-325 1 - 2 tablet PO Q4-6H PRN pain 7 03/18/25 Rx mg tablet days #30 tabs Patient hx anesthesia problems: none Family hx anesthesia problems: none Results Review: All pre-operative results and documents have been reviewed as part of the pre-operative evaluation. [facility] Past Medical History Medical History Osteoarthritis of right shoulder Surgical History Surgical History History of left inguinal hernia repair History of arthroscopy of both knees History of appendectomy Family History Family History Father Malignant neoplasm of prostate Other Cerebrovascular accident Family history of allergic disorder Family history of malignant neoplasm Hypertension Social History Social History Smoking status: Former smoker Smoking end date: 11/04/92 Alcohol intake: never Substance use: never Do You Feel Safe in your Home?: Yes Lack of Transportation: No Lack of Food: Never True Current Housing: I Have Housing Concerned About Future Housing: No Difficulty Paying Gas/Electric Bills: No Difficulty Paying for Meds: No Currently Unemployed: No Education: Trade/Vocational Certificate Difficulty w/ Childcare or Family Care: No Anes - Eval Final PreProcedure Day of Procedure 03/18/25 09:58 Patient weight: normal Lungs: normal air movement Airway: Mallampati scale class II Neurological: alert and oriented Last oral intake: >/= 8 hours ASA classification: II Emergent: no Anesthetic plan: proceed Anesthesia type and monitoring: general ETT and standard monitoring Results Review: All pre-operative results and documents have been reviewed as part of the pre-operative evaluation. Hx of baseline bradycardia noted, noted luz elena after COVID. Workup normal per pt and . Pt very active w lifting wts, cardio, no cp or sob. Informed Consent: The patient's anesthetic plan and its attendant risks and benefits were discussed with the patient/family/POA. Questions were solicited and answers provided to the satisfaction of the patient/family/POA.
--- NOTE | 2025-03-18 10:12 | WPDANESPNB ---
Anes - Peripheral Nerve Block Date/Time: 03/18/25 10:12 I have discussed with the patient/family/POA the placement of a peripheral nerve block for post-operative pain management, including associated risks, benefits, complications, and side effects. Alternative methods of post-operative analgesia were detailed. Questions were solicited and answers provided to the satisfaction of the patient/family/POA. Time-Out: A pre-procedural Time-Out was completed immediately before starting the procedure and confirmed: Patient Identification, Site, Procedure, Patient Position and the Availability of Requisite Equipment. Clinical Indications: Acute post-operative pain management requested by the operative surgeon. Nerve Block Insertion Note Anes-nerve block: interscalene left Patient position: supine Skin prep: chlorhexidine Needle: 22 gauge, stimulating, insulated echogenic needle. Needle length: 80 mm Technique: ultrasound Injectate: other (Bupiv 0.5% 15 mls. ) Observations: tolerated well Complications: none Procedure start time:: 1000 Procedure end time:: 1008
[2025-03-18] MEDS: ceFAZolin 2 GM/D5W 50 ML 2 GM/50 ML BAG IVPB (10:30)
--- NOTE | 2025-03-18 15:33 | W.PM.PROC2 ---
Procedure Note - Detailed Date of Procedure 03/18/25 Pre-op Diagnosis Complete Left Rot Cuff Tear Post-op Diagnosis Other (1. Full Thickness Rotator cuff tear 2. Subacromial impingement 3. Biceps tendinosis) Procedure Performed Left shoulder 1. Arthroscopic rotator cuff repair 2. Arthroscopic subacromial decompression 3. Arthroscopic biceps tenodesis Surgeon Ori Eduardo MD Physicist Acoustics Nicolette Rodriguez PA-C Anesthesia General and Regional ( interscalene block) Findings Full-thickness medium-sized non retracted supraspinatus tear. Upper border subscapularis tear. Significant split tearing of the biceps with severe tendinosis. Minimal humeral chondromalacia. Two bone tunnel repair of the supraspinatus. SwiveLock anchor used to repair the upper subscapularis and perform a biceps tenodesis with the loop intact system. Subacromial decompression removing bone from the anterolateral acromion with the arthroscopic bur. Moderate hyperemia diffusely suggesting an acute component of the tears. Description of Procedure Preoperative antibiotics were given. An interscalene block was administered in the preoperative area. The patient was bought brought to the operating room. A general anesthetic was administered. The patient was carefully positioned in the beach chair position. The head and neck were carefully positioned. The non operative extremity was also carefully positioned. The shoulder was prepped and draped in the usual sterile fashion. Examination was performed. Standard posterior and anterior arthroscopic portals were established. Inflow achieved with the arthroscopic pump using saline and epinephrine. The glenohumeral joint was carefully inspected. Minimal humeral chondromalacia. Degenerative fraying of the SLAP area. Significant disruption of the upper subscapularis and biceps. Some displacement of the split toward biceps into the subscapularis. Loop and tack suture passed around the biceps. Locking loop suture placed in the upper subscapularis. The biceps was released from its anchor. The labrum was debrided. The subscapularis and biceps were secured with a SwiveLock anchor in the bicipital groove adjacent to the articular margin. Attention was turned to the subacromial space. A complete bursectomy was performed. The tear configuration was carefully assessed. A subacromial decompression was performed with shaving of the underside of the acromion anterolaterally. At this point, 2 tunnels were created at the rotator cuff. Three sutures were passed through each tunnel. All sutures were then passed through the cuff tissue. The sutures were tied arthroscopically. A rip stop technique was used with the 2nd and 5th sutures. A nice anatomic repair without undue tension was accomplished. The arthroscopic instruments were removed. The wounds were closed with 3-0 Monocryl subcuticular suture and steri strips. There were no complications. A sling was applied and the patient brought to the recovery room. Physician administrative assistant coordinator, Nicolette Rodriguez PA-C, required for surgery; including patient positioning, draping, arthroscopic camera operation, maintaining instrument position, suture retrieval, wound closure, and dressing and sling placement. Implants Arthrex SwiveLock BioComposite anchor 4.75 mm. Estimated Blood Loss 20 Pathology None sent Complications No immediate complications Condition Stable Disposition PACU [facility] Billing Surgery - Charge Forward: Surgery Billing
== END 2025-03-18 14:15 | disposition home or self-care (01) ==
PROVIDERS: PCP Family Medicine; Visit Provider Orthopaedic Surgery
PROC: (CPT 29805; principal; 2025-03-18 10:30)
DX: M75.122 Complete rotator cuff tear or rupture of left shoulder, not specified as traumatic (principal); M75.42 Impingement syndrome of left shoulder; M75.22 Bicipital tendinitis, left shoulder; G89.18 Other acute postprocedural pain; Z87.891 Personal history of nicotine dependence
CPT/HCPCS: 29827; 29828; 29826; 64415; A9270; C1713; J0171; J0690; J1100; J1885; J2003; J2250; J2405; J2704; J3010; J7120

== ENCOUNTER 2025-09-10 08:46 | Outpatient (CLI) | payer OTHER, SELFPAY ==
--- NOTE | 2025-09-10 08:52 | ECG_ITS ---
Test Date: 2025-09-10 09:12:32 Measurements Intervals Hayden Rate: 40 P: 68 AR: 170 QRS: -1 QRSD: 98 T: 44 QT: 477 QTc: 391 Interpretive Statements SINUS BRADYCARDIA No previous ECG available for comparison Electronically Signed On 09-10-2025 10:06:12 GAS PUMPER by Al Mata D.O
--- OUTSIDE RECORDS SUMMARY | 2025-09-10 09:13 | XMS_ITS | Encounter Summary ---
Author Organization [facility] Healthcare Address [address] [place] [address] Care Team Providers Care Associate Partner Name Role Phone Ori Eduardo MD Unavailable [phone] Rashaad Quinn MD Primary Care Provider [phone] Encounter Details Date Type Department Care Team (Late st Contact Info) Description 08/31/2025 Results Follow-Up [facility] Medical Group Primary Care at [address] [address] Rashaad Quinn MD [address] [place] [address] [address] [place] [address] XR Shoulder Right 2 or More Views, MRI Shoulder Right WO Contrast Social History Tobacco Use Types Packs/Day Years [...] No 08/16/2021 Social Connection and Isolation Panel Answer Date Recorded In a typical week, how many times do you talk on the phone with family, friends, or neighbors? Once a week 08/16/2021 How often do you get together with friends or re latives? Once a week 08/16/2021 How often do you attend muslim or jainism serv ices? Never 08/16/2021 Do you belong to any clubs o r organizations such as muslim groups, unions, fraternal or athletic groups, or school groups? No 08/16/2021 How often do you attend meet ings of the clubs or organizations you belong to? Never 08/16/2021 Are you , , di vorced, , never , or living with a partner? 08/16/2021 Overall Financial Resource Strain (CARDIA) Answe r Date Recorded How hard is it for you to pa y for the very basics like food, housing, medical care, and heating? Not hard at all 08/16/2021 PHQ-2 Answer Date Recorded PHQ-2 Total Score (If total score is 3 or more points, staff should administer the PHQ-9) 0 09/01/2025 [facility] - Occupational Stress Questionnaire Answer Date [...] place to sleep or slept in a care home (including now)? No 08/16/2021 AUDIT-C Answer Date Recorded Q1: How often do you have a drink containing alcohol? Never 09/01/2025 Q2: How many drinks containi ng alcohol do you have on a typical day when you are drinking? Patient does not drink Q3: How often do you have si x or more drinks on one occasion? Never 09/01/2025 Education Answer Date Recorded What is the highest level of school you have completed or the highest degree you have received? 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 Gender Identity Not on file Sexual Orientation Not on file Occupation Industry Job Start Date Job End Date Not on file Not on file Not on file Not on file Not on file Not on file Not on file Not on file documented as of this encounter Functional Status * In the past year, patient experienced: Question Answer Date of Assessment Author One or more falls in the las t year 0 09/01/2025 3:31 PM Elizabeth Cohen MA Has trouble stepping up onto a curb 0 09/01/2025 3:31 PM Elizabeth Cohen MA Advised to use a cane or walker to get around safely 0 09/01/2025 3:31 PM Michelle Mcduffie MA Often has to matos to the toilet 0 09/01/2025 3:31 PM Elizabeth Cohen MA Feels unsteady when walking 0 09/01/2025 3: 31 PM CDT Michelle Figueroa MA Has lost some feeling in feet 0 09/01/2025 3:31 PM CHANAT Michelle Figueroa MA Steadies self on furniture while walking at home 0 09/01/2025 3:31 PM CDT Michelle Figueroa MA Takes medicine that makes him/her feel lightheaded or more tired than usual 0 09/01/2025 3:31 PM CHANAT Michelle Figueroa MA Worried about falling 0 09/01/2025 3:31 PM CDT Michelle Figueroa MA Takes medicine to sleep or improve mood 0 09/01/2025 3:31 PM CDT Elizabeth Figueroa MA Needs to push with hands whe n rising from a chair 0 09/01/2025 3:31 PM CHANAT Elizabeth Figueroa MA Often feels sad or depressed 0 09/01/2025 3 :31 PM CDT Michelle Figueroa MA STEADI Score Total 0 09/01/2025 3:31 PM CDT Michelle Figueroa MA * BP Location Answer Date of Assessment Author Left arm 09/01/2025 3:34 PM CDT Michelle Holguin MA * AUDIT-C Score Answer Date of Assessment Author 0 09/01/2025 3:51 PM CDT Ladarius Quinn MD * Alcohol Use Question Answer Date of Assessment Author Q1: How often do you have a drink containing alcohol? Never 09/01/2025 3:51 PM CDT Rashaad Quinn MD Q2: How many drinks containing alcohol do you have on a typical day when you are drinking? Patient does not drink 09/01/2025 3:51 PM CHANAT Rashaad Quinn MD Q3: How often do you have six or more drinks on one occasion? Never 09/01/2025 3:51 PM CHANAT Rashaad Quinn MD * BP Location Answer Date of Assessment Author Left arm 09/01/2025 3:34 PM CDT Michelle Holguin MA documented as of this encounter Miscellaneous Notes * Telephone Encounter - Elijah Annette Sameer - 09/08/2025 9:28 AM CST Call Back Caller???s Concern: Is this ready to be picked up? Does message need to be routed? Yes-Action Needed E SITTER documented in this encounter Plan of Treatment Not on file documented as of this encounter Visit Diagnoses Not on filedocumented in this encounter Care Teams Associate Partner Relationship Specialty Start Date End Date Rashaad Quinn MD [facility] [address] [place] [address] PCP - General Family Medicine 02/19/11 Ori Eduardo MD [address] [facility] [address] [place] [address] Consulting Physician Orthopedic Surgery 08/16/21 documented as of this encounter
--- OUTSIDE RECORDS SUMMARY | 2025-09-10 09:13 | XMS_ITS | Clinical Summary ---
Author Organization [facility] Medical Office Building B Address [address] [place] [address] Care Team Providers Care Manager Technical Services Name Role Phone Ori Eduardo MD Unavailable [phone] Rashaad Quinn MD Primary Care Provider [phone] Allergies Active Allergy Reactions Criticality Noted Date Comments Oxycodone Other (See comments) 08/31/2025 Lowers heart rate Medications flaxseed oil oil Active cholecalciferol , vitamin D3, (VITAMIN D3 ORAL) Take by mouth Active calcium carbonate (CALCIUM 600 ORAL) Take by mouth Active vitamin b complex tablet Take 1 tablet by mouth daily Active methylPREDNISol one (MEDROL DOSEPACK) 4 mg DosepackIndicat ions:Acute pain of right shoulder Take as directed on package. 21 tablet 09/06/20 25 Active Problems Problem Noted Date Diagnosed Date Anxiety 08/31/2025 Cervical radiculopathy 08/31/2025 Osteoarthritis of right shoulder 08/31/2025 Traumatic complete tear of left rotator cuff Rotator cuff tear arthropathy of left shoulder [...] on td. Hypercholesterolemia 03/20/2014 Overview (02/08/2017): Hypercholesterolemia Resolved Problems Problem Noted Date Diagnosed Date Resolved Date COVID 08/31/2025 09/01/2025 Encounters Date Type Department Care Team Description 09/07/2025 6:26 AM ICEBOX MAN - 09/07/2025 11:59 PM ICEBOX MAN Hospital Encounter [address] [address] Acute pain of right shoulder Discharge Disposition: Discharge to home or self care 09/01/2025 3:30 PM CDT Office Visit [facility] at [address] [phone] Rashaad Quinn MD Encounter for subsequent annual wellness visit (AWV) in Medicare patient (Primary Dx); Hypercholesterolemia; Statin declined; Umbilical hernia without obstruction and without gangrene; Benign prostatic hyperplasia with nocturia; Anxiety; Primary osteoarthritis of right shoulder 08/31/2025 10:04 AM CDT - 08/31/2025 11:59 PM CDT Hospital Encounter [address] [address] Acute pain of right shoulder Discharge Disposition: Discharge to home or self care 08/31/2025 9:30 AM CDT Office Visit [facility] at [address] [phone] Rashaad Quinn MD Acute pain of right shoulder (Primary Dx) 08/31/2025 Results Follow-Up [facility] at [address] [phone] Rashaad Quinn MD XR Shoulder Right 2 or More Views, MRI Shoulder Right WO Contrast 08/30/2025 Results Follow-Up [facility] at [address] [phone] Rashaad Quinn MD PSA screen, Lipid panel, Comprehensive metabolic panel, Additional followed-up results: 3 2025 7:25 AM CDT [address] [address] Benign prostatic hyperplasia with nocturia; Hypercholesterolemia from Last 3 Months Immunizations Immunization Administration Dates Next Due Influenza, Split 11/04/2017 Influenza, Trivalent, IM (MDV) 11/04/2017 Influenza, Unspecified 08/19/2024(Deferr ed: Patient Refused),11/21/2023(Deferred: [...] Not Answered Alcohol Use Standard Drinks/Week Comments Never 0 (1 standard drink = 0.6 oz [...] week 08/16/2021 How often do you attend gnosticism or spiritism serv ices? Never 08/16/2021 Do you belong to any clubs o r organizations such as gnosticism groups, unions, fraternal or athletic groups, or [...] staff should administer the PHQ-9) 0 09/01/2025 [facility] - Occupational Stress Questionnaire Answer Date [...] place to sleep or slept in a chcf (including now)? No 08/16/2021 AUDIT-C Answer Date [...] on file Legal Sex Male 10:14 AM ICEBOX MAN Gender Identity Not on file Sexual Orientation Not on file Occupation Industry Job Start Date Job End Date Not on file Not on file Not on file Not on file Not on file Not on file Not on file Not on file Last Filed Vital Signs Vital Sign Reading Time Taken Comments Blood Pressure 140/90 09/01/2025 3:34 PM CDT Pulse 56 09/01/2025 3:34 PM CDT Temperature 35.9 C (96.7 F) 09/01/2025 3:34 PM CDT Respiratory Rate 18 09/01/2025 3:34 PM CDT Oxygen Saturation 98% 09/01/2025 3:34 PM CDT Inhaled Oxygen Concentration - - Weight 76.2 kg (168 lb) 09/01/2025 3:34 PM CDT Height 175.3 cm (5' 9) 09/01/2025 3:34 PM CDT Body Mass Index 24.81 09/01/2025 3:34 PM CDT Plan of Treatment Health Maintenance Due Date Last Done Comments Hepatitis B Screening 1978 Zoster Vaccine (1 of 2) 08/31/2026 Post poned from 2008 (Insurance / Financial) Depression Screening 09/01/2026 09/01/2025, 02/17/2025, 01/20/2025, Additional history exists Fall Risk Assessment 09/01/2026 09/01/2025, 01/20/2025, 08/19/2024, Additional history exists Well Visit 65+ 09/01/2026 09/01/2025, 08/04, 08/19/2023, Additional history exists DTaP/Tdap/Td Vaccine (3 - Td or Tdap) 09/10/2026 09/10/2016, 02/19/2011 Prostate Cancer Screening-PSA 2027 2025, 02/13/2025, 08/17/2024, Additional history exists Colon Cancer Screening-Colonoscopy 08/14/2028 08/14/2018, 11/19/2011 Influenza Vaccine Discontinued 11/04/2017, 11/04/2017 Colon Cancer Screening-CT Colonography Discontinued 08/14/2018, 11/19/2011 Colon Cancer Screening-DNA Stool Discontinued 08/14/2018, 11/19/2011 Colon Cancer Screening-FIT Discontinued 08/14/2018, Colon Cancer Screening-Sigmoidoscopy Discontinued 08/14/2018, 11/19/2011 Hepatitis C Screening Completed 11/01/2020 Abdominal Aortic Aneurysm (AAA) Screen Completed 10/23/2024 Pneumococcal vaccine 65+ Discontinued Procedures Procedure Name Priority Date/Time Associated Diagnosis Comments MRI SHOULDER RIGHT WO CONTRAST Schedule Routine, Read Routine (OP Routine) 09/07/2025 7:26 AM ICEBOX MAN Acute pain of right shoulder XR SHOULDER RIGHT 2 OR MORE VIEWS Routine 08/31/2025 10:11 AM CDT Acute pain of right shoulder EGFR Routine 2025 7:31 AM CDT Hypercholesterolem ia DIFFERENTIAL AUTO Routine 2025 7:3 1 AM CDT Hypercholesterolem ia CBC WITH AUTO DIFFERENTIAL Routine 2025 7:31 AM CDT Hypercholesterolem ia COMPREHENSIVE METABOLIC PANEL Routine 2025 7:31 AM CDT Hypercholesterolem ia LIPID PANEL Routine 2025 7:31 AM CDT Hypercholesterolem ia PSA SCREEN Routine 2025 7:31 AM CDT Benign prostatic hyperplasia with nocturia US ABDOMINAL AORTIC ANEURYSM SCREENING Schedule Routine, Read Routine (OP Routine) 10/23/2024 3:59 PM ICEBOX MAN Screening for abdominal aortic aneurysm HEPATITIS C ANTIBODY Routine 11/01/2020 HM COLONOSCOPY Routine 08/14/2018 from Last 3 Months or Most Recently Relevant to Health Maintenance Results * MRI Shoulder Right WO Contrast (09/07/2025 7:26 AM ICEBOX MAN) Anatomical Region Laterality Modality Upper Extremities Right Magnetic Reson ance 09/07/2025 8:00 AM ICEBOX MAN Impressions 09/07/2025 8:00 AM ICEBOX MAN 1. Moderate right rotator cuff tendinosis with superimposed 13 x 20 mm region of deep partial and full-thickness tearing of the supraspinatus, proximal to the footprint. Additional 9 x 15 mm region of degenerative interstitial and partial-thickness articular sided tearing of the infraspinatus. 2. Moderate right acromioclavicular joint osteoarthritis with distal clavicular predominant marrow edema and small erosion. This can be associated with distal clavicular osteolysis. Moderate subacromial subdeltoid bursitis. 3. Minimal right glenohumeral chondrosis with a small shoulder effusion and synovitis. Electronically signed by: Jose De Jesus Sellers M.D. Narrative 09/07/2025 8:00 AM ICEBOX MAN EXAMINATION: 1. MRI right shoulder without contrast HISTORY: Right shoulder pain for one week. Rotator cuff tear. FINDINGS: Comparison radiograph 08/31/2025. Multiplanar multisequence MR examination of the right shoulder was performed with a local coil. There is a type 2 acromion. The coracoacromial ligament is thickened. Moderate acromioclavicular joint osteoarthritis is present. Distal clavicular predominant marrow edema is present with small erosion. There is moderate subacromial subdeltoid bursitis. The rotator cuff muscle bulk is normal. Insertional subscapularis tendinosis. Mild medial subluxation of a tendinopathic biceps tendon at the superior margin of the bicipital groove. Moderate supraspinatus and infraspinatus cuff tendinosis. There is a superimposed 13 x 20 mm region of deep partial and full-thickness tearing of the supraspinatus proximal to the footprint. Additional 9 x 15 mm region of degenerative interstitial and partial-thickness articular sided tearing of the infraspinatus. The delaminating interstitial component propagates to the myotendinous junction. There is degenerative tearing of the superior glenoid labrum. The labrum below the equator is normal. Minimal glenohumeral fissuring. Small shoulder effusion is present with mild synovitis. No loose bodies are identified. Procedure Note Jose De Jesus Sellers MD - 09/07/2025 EXAMINATION: 1. MRI right shoulder without contrast HISTORY: Right shoulder pain for one week. Rotator cuff tear. FINDINGS: Comparison radiograph 08/31/2025. Multiplanar multisequence MR examination of the right shoulder was performed with a local coil. There is a type 2 acromion. The coracoacromial ligament is thickened. Moderate acromioclavicular joint osteoarthritis is present. Distal clavicular predominant marrow edema is present with small erosion. There is moderate subacromial subdeltoid bursitis. The rotator cuff muscle bulk is normal. Insertional subscapularis tendinosis. Mild medial subluxation of a tendinopathic biceps tendon at the superior margin of the bicipital groove. Moderate supraspinatus and infraspinatus cuff tendinosis. There is a superimposed 13 x 20 mm region of deep partial and full-thickness tearing of the supraspinatus proximal to the footprint. Additional 9 x 15 mm region of degenerative interstitial and partial-thickness articular sided tearing of the infraspinatus. The delaminating interstitial component propagates to the myotendinous junction. There is degenerative tearing of the superior glenoid labrum. The labrum below the equator is normal. Minimal glenohumeral fissuring. Small shoulder effusion is present with mild synovitis. No loose bodies are identified. IMPRESSION: 1. Moderate right rotator cuff tendinosis with superimposed 13 x 20 mm region of deep partial and full-thickness tearing of the supraspinatus, proximal to the footprint. Additional 9 x 15 mm region of degenerative interstitial and partial-thickness articular sided tearing of the infraspinatus. 2. Moderate right acromioclavicular joint osteoarthritis with distal clavicular predominant marrow edema and small erosion. This can be associated with distal clavicular osteolysis. Moderate subacromial subdeltoid bursitis. 3. Minimal right glenohumeral chondrosis with a small shoulder effusion and synovitis. Electronically signed by: Jose De Jesus Sellers M.D. us Rashaad Quinn MD IM MRI PROCEDURES Final Re sult * XR Shoulder Right 2 or More Views (08/31/2025 10:11 AM CDT) Anatomical Region Laterality Modality Upper Extremities, Shoulder Right Comp uted Radiography 08/31/2025 10:3 2 AM CDT Impressions 08/31/2025 10:32 AM CDT 1. No acute radiographic abnormality. 2. Moderate acromioclavicular and mild glenohumeral joint osteoarthritis. Electronically signed by: Thierry El M.D. Narrative 08/31/2025 10:32 AM CDT EXAM DESCRIPTION: XR SHOULDER RIGHT 2 OR MORE VIEWS REASON FOR STUDY: Acute right shoulder pain after pushing shower door yesterday. TECHNIQUE: Four views of the right shoulder COMPARISON: Chest and right radiograph's 01/20/2015 FINDINGS: BONES/JOINTS: No acute fracture or dislocation. Moderate acromioclavicular and mild glenohumeral joint osteoarthritis. Old right rib fractures. SOFT TISSUES: Calcific granuloma the right upper lobe. Procedure Note Thierry El MD - 08/31/2025 EXAM DESCRIPTION: XR SHOULDER RIGHT 2 OR MORE VIEWS REASON FOR STUDY: Acute right shoulder pain after pushing shower door yesterday. TECHNIQUE: Four views of the right shoulder COMPARISON: Chest and right radiograph's 01/20/2015 FINDINGS: BONES/JOINTS: No acute fracture or dislocation. Moderate acromioclavicular and mild glenohumeral joint osteoarthritis. Old right rib fractures. SOFT TISSUES: Calcific granuloma the right upper lobe. IMPRESSION: 1. No acute radiographic abnormality. 2. Moderate acromioclavicular and mild glenohumeral joint osteoarthritis. Electronically signed by: Thierry El M.D. Rashaad Quinn MD IMG XR PROCEDURES Final Res ult * eGFR (2025 7:31 AM CDT) eGFR >90 >=60 mL/min/1. 73 [...] interpretive data was last reviewed 2021. Blood 2025 7:31 AM CDT 2025 8:27 AM CDT Rashaad Quinn MD LAB BLOOD ORDERABLES Final Result [facility] ([facility] [employer] [facility] Department [place] [address] * Differential, auto (2025 7:31 AM CDT) Neutrophil abs 2.36 1.50 - 6.50 K/cumm Imm gran abs 0.00 0.00 - 0.10 K/cumm [facility] ([facility]) Lymphocyte abs 1.97 0.80 - 3.30 K/cumm [facility] ([facility]) Monocyte abs 0.58 0.20 - 0.80 K/cumm [facility] ([facility]) Eosinophil abs 0.23 0.00 - 0.50 K/cumm [facility] ([facility]) Basophil abs 0.07 0.00 - 0.10 K/cumm [facility] ([facility]) Neutrophil pct 45.4 % [facility] (RM) Comment: Interpretive Data Percent cell count reference ranges are not reported, since discordance with absolute values may lead to misinterpretation of CBC data. Current Interpretive Data was last revised on 2018. Imm gran pct 0.0 % [facility] ([facility]) Comment: Interpretive Data Percent cell count reference ranges are not reported, since discordance with absolute values may lead to misinterpretation of CBC data. Current Interpretive Data was last revised on 2018. Lymphocyte pct 37.8 % [facility] ([facility]) Comment: Interpretive Data Percent cell count reference ranges are not reported, since discordance with absolute values may lead to misinterpretation of CBC data. Current Interpretive Data was last revised on 2018. Monocyte pct 11.1 % [facility] (RM) Comment: Interpretive Data Percent cell count reference ranges are not reported, since discordance with absolute values may lead to misinterpretation of CBC data. Current Interpretive Data was last revised on 2018. Eosinophil pct 4.4 % [facility] ([facility]) Comment: Interpretive Data Percent cell count reference ranges are not reported, since discordance with absolute values may lead to misinterpretation of CBC data. Current Interpretive Data was last revised on 2018. Basophil pct 1.3 % [facility] ([facility]) Comment: Interpretive Data Percent cell count reference ranges are not reported, since discordance with absolute values may lead to misinterpretation of CBC data. Current Interpretive Data was last revised on 2018. Blood 2025 7:31 AM CDT 2025 8:27 AM CDT us Rashaad Quinn MD LAB BLOOD ORDERABLES Final Result Performing Organization Address City/[facility] Co de Phone Number [facility] ([facility]) 1 [facility] [place] [address] * PSA screen (2025 7:31 AM CDT) PSA-Total 0.57 <=5.40 ng/mL Comment: Interpretive Data AGE SEX [...] Current interpretive data last revised 22. Blood 2025 7:31 AM CDT 2025 8:27 AM CDT Rashaad Quinn MD LAB BLOOD ORDERABLES Final Result Performing Organization Address City/[facility] Co de Phone Number [facility] (RM) 1 [facility] [place] [address] * CBC with auto differential (2025 7:31 AM CDT) WBC 5.21 3.80 - 9.90 K/cumm Hgb 14.1 13.0 - 17.5 g/dL [facility] ([facility]) Hct 41.9 38.9 - 50.3 % [facility] ([facility]) Plt 311 150 - 400 K/cumm [facility] ([facility]) MPV 10.0 9.1 - 12.3 fL [facility] ([facility]) RBC 4.81 4.30 - 5.80 M/cumm [facility] ([facility]) MCV 87.1 81.3 - 96.4 fL [facility] ([facility]) MCH 29.3 27.1 - 33.3 pg [facility] ([facility]) MCHC 33.7 32.3 - 35.7 g/dL [facility] ([facility]) RDW CV 13.0 11.1 - 14.9 % [facility] ([facility]) RDW SD 41.7 35.7 - 48.1 fL [facility] ([facility]) NRBC abs 0.00 0.00 - 0.01 K/cumm [facility] ([facility]) Blood 2025 7:31 AM CDT 2025 8:27 AM CDT us Rashaad Quinn MD LAB BLOOD ORDERABLES Final Result [facility] ([facility]) 1 [facility] Department [place] [address] * (ABNORMAL) Lipid panel (2025 7:31 AM CDT) Cholesterol 242(H) 30 - 199 mg/dL Comment: Interpretive Data [...] Data was last revised on 2018. Triglycerides 65 <=149 mg/dL [facility] ([facility]) Comment: Interpretive Data Ages < or = [...] Data was last revised on 2018. HDL 75 >=40 mg/dL [facility] ([facility]) Comment: Interpretive Data [...] was last revised on 2018. LDL, calculated 156(H) <=129 mg/dL [facility] ([facility]) Comment: Interpretive Data [...] NCEP Expert Panel. Circulation 2004;110:227 3. Ilir Osborne al. [place] Cardiol. 2019March 04;5(5):540-548. doi: 10.1001/jamacardio.2020.0013 Current Interpretive Data was last revised on 2024. Non-HDL Cholesterol 167 mg/dL [facility] ([facility]) Comment: Interpretive Data [...] last revised on 2018. Chol/HDL ratio 3 [facility] ([facility]) Blood 2025 7:31 AM CDT 2025 8:27 AM CDT us Rashaad Quinn MD LAB BLOOD ORDERABLES Final Result [facility] ([facility]) 1 [facility] Department [place] [address] * (ABNORMAL) Comprehensive metabolic panel (2025 7:31 AM CDT) Sodium 138 135 - 145 mmol/L Potassium, pl 4.3 3.3 - 4.9 mmol/L [facility] ([facility]) Chloride 103 97 - 110 mmol/L [facility] ([facility]) CO2 25 22 - 32 mmol/L [facility] ([facility]) Anion gap 10 2 - 15 mmol/L [facility] ([facility]) BUN 13 6 - 25 mg/dL [facility] ([facility]) [...] interpretive data was last revised 2022. Calcium 9.5 8.5 - 10.3 mg/dL [facility] ([facility]) Bilirubin, total 0.6 0.1 - 1.2 mg/dL [facility] ([facility]) Protein, pl 7.0 6.5 - 8.5 g/dL [facility] ([facility]) Albumin 4.5 3.5 - 5.0 g/dL [facility] ([facility]) Alk phos 69 40 - 130 Units/L [facility] ([facility]) ALT 20 7 - 55 Units/L [facility] ([facility]) AST 26 10 - 50 Units/L [facility] ([facility]) Blood 2025 7:31 AM CDT 2025 8:27 AM CDT us Rashaad Quinn MD LAB BLOOD ORDERABLES Final Result [facility] ([facility]) 1 [facility] Department [place] [address] * US Abdominal Aortic Aneurysm Screening (10/23/2024 3:59 PM ICEBOX MAN) Anatomical Region Laterality Modality Abdomen Ultrasound 11/01/2024 7:13 AM ICEBOX MAN Narrative 11/01/2024 7:14 AM ICEBOX MAN EXAM DESCRIPTION: US ABDOMINAL AORTIC ANEURYSM SCREENING REASON FOR STUDY: screening for AAA TECHNIQUE: Grayscale images acquired of the aorta and stored on PACS. Selected color Doppler and spectral images recorded. COMPARISON: None. FINDINGS: AORTIC CALIBER MAXIMAL PROXIMAL: 2.9 x 2.8 cm. MID: 1.9 x 1.7 cm. DISTAL: 1.4 x 1.8 cm. ILIAC DIAMETER RIGHT: 1.2 x 1.1 cm. LEFT: 1.2 x 1.1 cm. OTHER: No other significant finding. IMPRESSION: No abdominal aortic aneurysm. REFERENCE: Please see below follow up recommendations for abdominal aortic aneurysm surveillance per Society for Vascular Surgery Guidelines: < 2.5 cm No follow up or future screenings necessary 2.52.9 cm Recommended ultrasound follow up every 10 years 3.0-3.9 cm Recommended ultrasound follow up every 3 years 4.0-4.9 cm Recommended ultrasound follow up every 12 months, vascular surgery consult 5.0-5.4 cm Recommended ultrasound follow up every 6 months, vascular surgery consult >= 5.5 cm Referral to vascular surgeon Based upon Society for Vascular Surgery Guidelines: J Vasc Surgery 2008 50: [id number]; updated Nov 2017 J Vasc Surgery 67:277 THIS IS AN ELECTRONICALLY VERIFIED FINAL REPORT 11/01/2024 7:14 AM - Electronically signed by Zach Higuera M.D. CH: VIRAJ Report ID: [id number] Reading Location: [id number] Procedure Note Zach Higuera Jr., MD - 11/01/2024 EXAM DESCRIPTION: US ABDOMINAL AORTIC ANEURYSM SCREENING REASON FOR STUDY: screening for AAA TECHNIQUE: Grayscale images acquired of the aorta and stored on PACS.Selected color Doppler and spectral images recorded. COMPARISON: None. FINDINGS: AORTIC CALIBER MAXIMAL PROXIMAL: 2.9 x 2.8 cm. MID: 1.9 x 1.7 cm. DISTAL: 1.4 x 1.8 cm. ILIAC DIAMETER RIGHT: 1.2 x 1.1 cm. LEFT: 1.2 x 1.1 cm. OTHER: No other significant finding. IMPRESSION: No abdominal aortic aneurysm. REFERENCE: Please see below follow up recommendations for abdominal aortic aneurysm surveillance per Society for Vascular Surgery Guidelines: < 2.5 cm No follow up or future screenings necessary 2.52.9 cm Recommended ultrasound follow up every 10 years 3.0-3.9 cm Recommended ultrasound follow up every 3 years 4.0-4.9 cm Recommended ultrasound follow up every 12 months, vascularsurgery consult 5.0-5.4 cm Recommended ultrasound follow up every 6 months, vascularsurgery consult >= 5.5 cm Referral to vascular surgeon Based upon Society for Vascular Surgery Guidelines: J Vasc Surgery 2009Oct 50: s2s49; updated Nov 2017 J Vasc Surgery 67:277 THIS IS AN ELECTRONICALLY VERIFIED FINAL REPORT 11/01/2024 7:14 AM - Electronically signed by Zach Higuera M.D. CH: VIRAJ Report ID: [id number] Reading Location: [id number] us Rashaad Quinn MD IMG US PROCEDURES Final Res ult * Hepatitis C antibody (11/01/2020) SCRIBED HCV ab negative EXTERNAL LAB Blood specimen (specimen) us Historical Provider LAB MICROBIOLOGY - GENERA L ORDERABLES Final Result EXTERNAL LAB * COLONOSCOPY (08/14/2018) Colonoscopy Abnormal us Historical Provider HEALTH MAINTENANCE Final Result from Last 3 Months or Most Recently Relevant to Health Maintenance Insurance [facility] MEDICARE ADVANTAGE Care Teams Manager Technical Services Relationship Specialty Start Date End Date Rashaad Quinn MD [address] [place] [address] PCP - General Family Medicine 02/19/11 Ori Eduardo MD [address] [place] [address] Consulting Physician Orthopedic Surgery 08/16/21
--- OUTSIDE RECORDS SUMMARY | 2025-09-10 09:13 | XMS_ITS | Encounter Summary ---
Author Organization [facility] Healthcare Address [address] [place] [address] Care Team Providers Care Plant Accountant Name Role Phone Ori Eduardo MD Unavailable [phone] Rashaad Quinn MD Primary Care Provider [phone] Encounter Details Date Type Department Care Team (Late st Contact Info) Description 08/30/2025 Results Follow-Up [facility] Primary Care at [address] [phone] Rashaad Quinn MD [address] [place] [address] [address] [place] [address] PSA screen, Lipid panel, Comprehensive metabolic panel, Additional followed-up results: 3 Social History Tobacco Use Types Packs/Day Years [...] week 08/16/2021 How often do you attend taoist or christianity serv ices? Never 08/16/2021 Do you belong to any clubs o r organizations such as taoist groups, unions, fraternal or athletic groups, or [...] staff should administer the PHQ-9) 0 09/01/2025 [facility] - Occupational Stress Questionnaire Answer Date [...] in a usp (including now)? No 08/16/2021 AUDIT-C Answer Date [...] on file Legal Sex Male 10:14 AM HEADER BOSS Gender Identity Not on file Sexual Orientation [...] walking at home 0 09/01/2025 3:31 PM CHANAT Michelle Figueroa MA Takes medicine that makes him/her feel lightheaded or more tired than usual 0 09/01/2025 3:31 PM CHANAT Michelle Figueroa MA Worried about falling 0 09/01/2025 3:31 PM CHANAT Michelle Figueroa MA Takes medicine to sleep or improve mood 0 09/01/2025 3:31 PM CDT Elizabeth Figueroa MA Needs to push with hands whe n rising from a chair 0 09/01/2025 3:31 PM CHANAT Elizabeth Figueroa MA Often feels sad or depressed 0 09/01/2025 3 :31 PM CHANAT Michelle Figueroa MA STEADI Score Total 0 [...] [place] MA documented as of this encounter Plan of Treatment Not on file documented as of this encounter Visit Diagnoses Not on filedocumented in this encounter Care Teams Plant Accountant Relationship Specialty Start Date End Date Rashaad Quinn MD [address] [facility] [address] [place] [address] PCP - General Family Medicine 02/19/11 Ori Eduardo MD [address] [place], [place] [id number] Consulting Physician Orthopedic Surgery 08/16/21 documented as of this encounter
== END 2025-09-10 08:47 | disposition home or self-care (01) ==
LOC: ANHCARD 08:48
PROVIDERS: PCP Family Medicine; Visit Provider Orthopaedic Surgery
DX: Z01.818 Encounter for other preprocedural examination (principal)
CPT/HCPCS: 93005

== ENCOUNTER 2025-09-14 00:51 | Day surgery (SDC) | payer MEDICARE, SELFPAY ==
--- NOTE | 2025-09-10 12:41 | SUR.PREOP ---
[facility] has started construction of its new state of the art ER which will open Spring 2026. With this, we anticipate parking may be a challenge for some our surgical patients and families. Parking spaces are limited but are available for all Surgical, obstetrics, and ER patients sharing this lot. If you arrive and find you are having a hard time finding a parking space, please note that we understand the challenges, please drive around the hospital and park near Hospital Entrance 1. When you enter this entrance, you can ask a volunteer to direct or take you back to the surgical waiting area to check in. We appreciate everyone?s understanding of these expected challenges while we build for your future. Report to the Outpatient Waiting Room, entrance under the green pavilion located off [address], at time _930AM__ on date _09/14/25_. Planned Procedure Time: __1130AM__.? Time changes happen often and if your time is changed the preop area will call you the afternoon before. - You and your visitor will be asked to self-screen and do not enter if you have any COVID symptoms. Please call surgeon if you need to reschedule. - A mask is optional within the hospital at this time. Patients may have clear liquids (water, carbonated beverages, clear teas, apple juice) until 3 hours prior to surgery with a maximum of 20 ounces. - No food from midnight until time of surgery and no smoking, or chewing tobacco (or any form of nicotine). No chewing gum, candy or mints. Take only the following medications with a SIP of water on the morning of surgery: _None_ DO NOT STOP ANY OF YOUR OTHER PRESCRIPTION MEDICATIONS PRIOR TO SURGERY EXCEPT THE FOLLOWING Hold all vitamins and supplements for 3 days per anesthesiologist. Medications to discontinue per physician _None_ Date to take last dose__09/10/25__ Please no make-up, nail yi, hairspray, perfume, deodorant, or body powder the day of surgery.? No jewelry (including any body piercings) or valuables the day of surgery, leave them at home.? Please take a shower or bath the night before, or the morning of, surgery with an antibacterial soap.? Wear comfortable, loose fitting clothing.? - Jewelry must be removed prior to entering the operating room.? Rings and piercings that are not removed may be cut off. - The hospital will not accept responsibility for valuables.? - Please leave all valuables, including medications, at home the day of surgery. If you are going home after surgery, a licensed distribution driver must drive you home.? - NO public transportation without another adult if you receive anesthesia. - We recommend that an adult stay with you for 24 hours following discharge. - We also recommend that you do not drive, make important decision, drink alcoholic beverages, or take any drugs that were not prescribed by your health care provider for at least 24 hours after your discharge time. Follow any additional instructions given to you from your surgeon. Telephone instructions given to __Scott__and asked if any additional questions and then verbalized understanding. Patient advised to call surgeon office or pre surgery nurse liaison [phone] if any additional questions.
[2025-09-10 12:52] VITALS: BMI 24.5
[2025-09-14] VITALS (10 sets, daily range): BP systolic 128–163; BP diastolic 58–93; PULSE 56–67; RESP 11–18; TEMP 36.1–37; O2SAT 91–100; BMI 25.1
[2025-09-14] MEDS: ACETAMINOPHEN 500 MG TABLET 1000 MG PO (09:29)
[2025-09-14] MEDS: KETOROLAC 15 MG/ML VIAL (*BKC) IV PUSH (09:29)
--- NOTE | 2025-09-14 10:44 | WPDHPUPDATE1 ---
History and Physical Update Update Date/Time: 09/14/25 10:44 History and Physical has been reviewed, including an updated exam of the patient. There are NO changes in the patient's condition. Risks, benefits, and alternatives have been discussed and questions answered. Patient agrees to proceed with procedure.
--- NOTE | 2025-09-14 11:04 | WPDANESEPPF ---
Anes - Initial Pre Proc Eval Procedure: Operation Date: 09/14/25 11:30 Proposed Procedures p Right Shoulder Arthroscopy, Rotator Cuff Repair Biceps Tenodesis and Subacromial Decompression - Ori Eduardo MD Date/Time: 09/14/25 11:04 Surgeon: Ori Eduardo MD Pre Op Diagnosis: Complete Right Rot Cuff Tear Patient Data Age: 65 Gender: M Height: 1.73 m Weight: 74.9 kg Last Vital Signs Temp 37.0 C 09/14/25 09:00 Pulse 60 09/14/25 09:00 Resp 18 09/14/25 09:00 BP 132/74 09/14/25 09:00 Pulse Ox 100 09/14/25 09:00 O2 Del Method Room Air 09/14/25 09:00 Allergies Allergy/AdvReac Type Severity Reaction Status Date / Time oxycodone AdvReac Intermediate Hypotension Verified 09/14/25 09:39 Home Medications ?Medication ?Instructions ?Recorded ?Confirmed ?Type ascorbic acid (vitamin C) 500 mg 500 mg PO DAILY 03/05/25 09/14/25 History capsule,extended release cholecalciferol (vitamin D3) 10 10 mcg PO DAILY 03/05/25 09/14/25 History mcg (400 unit) capsule docosahexaenoic acid (dha)-epa 120 1 cap PO DAILY 03/05/25 09/14/25 History mg-180 mg capsule (Fish Oil) vitamin E (dl, acetate) 45 mg (100 45 mg PO DAILY 03/05/25 09/14/25 History unit) capsule tramadol 50 mg tablet 50 mg PO Q6H PRN pain #30 tabs 09/14/25 Rx Patient hx anesthesia problems: none Family hx anesthesia problems: none Results Review: All pre-operative results and documents have been reviewed as part of the pre-operative evaluation. [facility] Past Medical History Medical History Osteoarthritis of right shoulder Surgical History Surgical History Status post arthroscopy of left shoulder (~03/18/25) Left RCR/SAD/Biceps tenodesis History of left inguinal hernia repair History of arthroscopy of both knees History of appendectomy Family History Family History Father Malignant neoplasm of prostate Other Cerebrovascular accident Family history of allergic disorder Family history of malignant neoplasm Hypertension Social History Social History Smoking packs per day: 0.3 Smoking cigarettes per day: 6.0 Years smoked: 4 Smoking pack-years: 1.20 Smoking status: Former smoker Smoking end date: 11/04/96 Alcohol intake: never Substance use: never Do You Feel Safe in your Home?: Yes Lack of Transportation: No Lack of Food: Never True Current Housing: I Have Housing Concerned About Future Housing: No Difficulty Paying Gas/Electric Bills: No Difficulty Paying for Meds: No Currently Unemployed: No Education: Trade/Vocational Certificate Difficulty w/ Childcare or Family Care: No Living arrangements: with family Additional living arrangements comments: Spiritual care concerns: No Anes - Eval Final PreProcedure Day of Procedure 09/14/25 11:04 Patient weight: normal Heart: regular rate and rhythm Lungs: clear to auscultation Airway: Mallampati scale class II Neurological: alert and oriented Last oral intake: >/= 8 hours ASA classification: II Emergent: no Anesthetic plan: proceed Anesthesia type and monitoring: general ETT and standard monitoring Results Review: All pre-operative results and documents have been reviewed as part of the pre-operative evaluation. Informed Consent: The patient's anesthetic plan and its attendant risks and benefits were discussed with the patient/family/POA. Questions were solicited and answers provided to the satisfaction of the patient/family/POA.
[2025-09-14] MEDS: ceFAZolin 2 GM in SODIUM CHLORIDE 0.9% IV 50 ML 100 ML IVPB (11:10)
[2025-09-14] MEDS: LACTATED RINGERS 1,000 ML 30 ML IV CONT (11:48)
[2025-09-14] MEDS: BUPIVACAINE/EPINEPHRINE 0.5% 50 ML VIAL 20 ML INFILTRATE (11:50)
[2025-09-14] MEDS: EPINEPHrine HCL INJ 1 MG/ML AMPUL IRRIGATION (11:58)
--- NOTE | 2025-09-14 13:50 | WPDANESPNB ---
Anes - Peripheral Nerve Block Date/Time: 09/14/25 13:50 I have discussed with the patient/family/POA the placement of a peripheral nerve block for post-operative pain management, including associated risks, benefits, complications, and side effects. Alternative methods of post-operative analgesia were detailed. Questions were solicited and answers provided to the satisfaction of the patient/family/POA. Time-Out: A pre-procedural Time-Out was completed immediately before starting the procedure and confirmed: Patient Identification, Site, Procedure, Patient Position and the Availability of Requisite Equipment. Clinical Indications: Acute post-operative pain management requested by the operative surgeon. Nerve Block Insertion Note Anes-nerve block: interscalene right Patient position: other (sitting) Skin prep: chlorhexidine Needle: 22 gauge, stimulating, insulated echogenic needle. Needle length: 50 mm Technique: nerve stimulation lost at (mA) (0.3) and ultrasound Technique comment: done in pacu Injectate: bupivacaine 0.5% with epi 5 mcg/ml (20ml no epi) and dexamethasone (mg) (4) Observations: tolerated well Complications: none Procedure start time:: 1338 Procedure end time:: 1344
--- NOTE | 2025-09-14 16:20 | W.PM.PROC2 ---
Procedure Note - Detailed Date of Procedure 09/14/25 Pre-op Diagnosis Full-thickness right shoulder rotator cuff tear. Acute on chronic. Post-op Diagnosis Other (1. Full Thickness Rotator cuff tear 2. Subacromial impingement 3. Biceps tendinosis) Procedure Performed Right shoulder 1. Arthroscopic rotator cuff repair 2. Arthroscopic subacromial decompression 3. Arthroscopic biceps tenodesis Surgeon Ori Eduardo MD Set Up / Operator Nicolette Rodriguez PA-C Anesthesia General Findings Very similar to the contralateral shoulder findings several months ago. Full-thickness medium-sized non retracted supraspinatus tear. Upper border subscapularis tear. Significant split tearing of the biceps with severe tendinosis. No significant humeral chondromalacia. Two bone tunnel repair of the supraspinatus. SwiveLock anchor used to repair the upper subscapularis and perform a biceps tenodesis with the loop intact system. Subacromial decompression removing bone from the anterolateral acromion with the arthroscopic bur. Mild hyperemia diffusely suggesting an acute component of the tears. Description of Procedure Preoperative antibiotics were given. The patient was bought brought to the operating room. A general anesthetic was administered. The patient was carefully positioned in the beach chair position. The head and neck were carefully positioned. The non operative extremity was also carefully positioned. The shoulder was prepped and draped in the usual sterile fashion. Examination was performed. Standard posterior and anterior arthroscopic portals were established. Inflow achieved with the arthroscopic pump using saline and epinephrine. The glenohumeral joint was carefully inspected. There were no degenerative chondral changes. Degenerative fraying of the SLAP area. Significant disruption of the upper subscapularis and biceps. Loop and tack suture passed around the biceps. Horizontal mattress suture placed in the upper subscapularis. The biceps was released from its anchor. The labrum was debrided. The subscapularis and biceps were secured with a SwiveLock anchor in the bicipital groove adjacent to the articular margin. The subscapularis repair was supplemented with an additional simple suture back up from the SwiveLock anchor. A complete full-thickness medium-size tear of the supraspinatus was confirmed. No significant retraction. Attention was turned to the subacromial space. A complete bursectomy was performed. The tear configuration was carefully assessed. A subacromial decompression was performed with shaving of the underside of the acromion anterolaterally. At this point, 2 tunnels were created at the rotator cuff. Three sutures were passed through each tunnel. All sutures were then passed through the cuff tissue. The sutures were tied arthroscopically. A rip stop technique was used with the 2nd and 5th sutures. A nice anatomic repair without undue tension was accomplished. The arthroscopic instruments were removed. The wounds were closed with 3-0 Monocryl subcuticular suture and steri strips. There were no complications. A sling was applied and the patient brought to the recovery room. An interscalene block was administered postoperatively Physician clinical laboratory assistant, Nicolette Rodriguez PA-C, required for surgery; including patient positioning, draping, arthroscopic camera operation, maintaining instrument position, suture retrieval, wound closure, and dressing and sling placement. Implants Arthrex SwiveLock [employer] anchor 4.75 mm. Estimated Blood Loss 10 Drains No Packing No Pathology None sent Complications No immediate complications Condition Stable Disposition PACU [facility] Billing Surgery - Charge Forward: Surgery Billing
== END 2025-09-14 15:31 | disposition home or self-care (01) ==
PROVIDERS: PCP Family Medicine; Visit Provider Orthopaedic Surgery
PROC: (CPT 29805; principal; 2025-09-14 11:30)
DX: S46.011A Strain of muscle(s) and tendon(s) of the rotator cuff of right shoulder, initial encounter (principal); M75.41 Impingement syndrome of right shoulder; M75.21 Bicipital tendinitis, right shoulder; X50.0XXA Overexertion from strenuous movement or load, initial encounter; G89.18 Other acute postprocedural pain; Z87.891 Personal history of nicotine dependence
CPT/HCPCS: 29827; 29828; 29826; 64415; J0690; A4565; A9270; C1713; J0166; J0461; J1100; J1885; J2250; J2270; J2405; J2704; J7120